=== PATIENT | female | born 1980 ===

== ENCOUNTER 2020-10-18 16:25 | Emergency (ER) | payer MEDICAID, SELFPAY ==
[2020-10-18 16:35] VITALS: BP 131/77; PULSE 106; RESP 16; TEMP 36.5; O2SAT 98; BMI 28.3
--- NOTE | 2020-10-18 18:46 | ED.GENADULT ---
HPI - General Adult General Chief complaint: General Medical Stated complaint: Throat discomfort Source: patient Mode of arrival: ambulatory Limitations: no limitations History of Present Illness HPI narrative: 40-year-old female of HIV on anti-retroviral therapy presents with sore throat. States that she does get recurrent sore throats with thrush and feels that this is same as prior experiences. Onset (ago): day(s) (2) Radiation: non-radiation Severity: mild Quality: burning Pain Consistency: constant Relieving factors: none Exacerbating factors: eating Associated symptoms: denies other symptoms Treatments prior to arrival: none Related Data Previous Rx's Medication Instructions Recorded fluconazole 100 mg tablet 100 mg PO DAILY 7 Days #7 tab 10/18/20 Allergies Allergy/AdvReac Type Severity Reaction Status Date / Time No Known Allergies Allergy Unverified 11/08/19 16:58 [No Known Allergies*] Review of Systems Review of Systems: Constitutional: No Fever, No Chills ENT/Mouth: No Ear Pain, No Hoarseness, positive sore throat Eyes: No Eye Pain, No Swelling, No Redness, No Foreign Body Cardiovascular: No Chest Pain, No SOB Respiratory: No Cough, No Dyspnea Gastrointestinal: No Nausea, No Vomiting, No Diarrhea, No abdominal Pain Genitourinary: No Dysuria, No Hematuria Musculoskeletal: No joint pain, No Myalgias, No Joint Swelling Skin: No Skin lacerations, No rash Neuro: No Weakness, No Numbness, No Paresthesias, No Loss of Consciousness, No Dizziness, No Headache Psych: No Anxiety/Panic, No Depression Heme/Lymph: no easy bruising, no Lymphadenopathy Endocrine: No Polyuria, No Polydipsia Yes all other systems are reviewed and are negative [facility] Past Medical History Attestation statement: The following information was validated with the patient. Source: old records reviewed Medical History HIV (human immunodeficiency virus infection) Social History Social History Advance Directives: No Advance Directives Information Provided: No Patient : No Physical Exam Vital Signs: Vital Signs: Last Vital Signs Temp 97.7 F 10/18/20 16:35 Pulse 106 H 10/18/20 16:35 Resp 16 08/28/21 16:35 BP 131/77 10/18/20 16:35 Pulse Ox 98 10/18/20 16:35 Body Mass Index 28.3 Appearance: Alert. Oriented X3. No acute distress. Eyes: Pupils equal, round and reactive to light. ENT: Pharynx with candidiasis without erythema. No cervical lymphadenopathy. Neck: Normal inspection. Neck supple. CVS: Normal heart rate and rhythm. Pulses normal. Respiratory: No respiratory distress. Breath sounds normal. Abdomen: Soft and nontender. Skin: Skin warm and dry. Normal skin color. Normal skin turgor. Extremities: No lower extremity edema. Gait while balance well coordinated. Neuro: No motor deficit. No sensory deficit. Cranial nerves 2-12 intact Course Course Course Narrative: 40-year-old female with HIV presents with oral thrush. Patient has been treated with fluconazole in the past and states that this medication works the best for her. She is on anti-retroviral therapy at this time. Will treat with fluconazole 200 mg and give 7 day treatment for home. Patient verbalized understanding of and agrees to plan of care discharge home Medical Decision Making Differential Diagnosis Differential Diagnosis: Pharyngitis, oral candidiasis, strep Medical Records Medical records reviewed: Yes I reviewed the patient's medical records. Lab Data Lab results reviewed: Yes I reviewed the patient's lab results. Labs: Lab Results 10/18/20 10/18/20 Range/Units 18:42 18:42 COVID-19 (MIGUEL) Negative (Negative) COVID-19 Clin Com See Note S. pyogenes GrpA JUDY Negative (Negative) Discharge Plan Discharge Clinical Impression: Candidiasis of mouth Patient Disposition: Home, Self-Care Instructions: Oral Candidiasis (ED) Additional Instructions: You evaluated for sore throat. Evaluation indicates oral candidiasis. Please take fluconazole 100 mg for the next 7 days. We gave her 1st dose in the emergency department. Follow-up with primary care physician in 1 week. Thank you for choosing this emergency department for evaluation. Please follow-up with primary care physician as needed. Return to the emergency department for any new, concerning, or worsening symptoms. Prescriptions: New fluconazole 100 mg tablet 100 mg PO DAILY 7 Days Qty: 7 RF: 0 Interventions: ED Discharge Assessment Last Done: 10/18/20 19:33 Discharge Date/Time: 10/18/20 19:52
[2020-10-18 18:58] LABS: Strep A Nucleic Acid Negative (Negative)
[2020-10-18 19:05] LABS: COVID-19 Test Negative (Negative); IDNOW Serial# 9DD0AD1C
[2020-10-18] MEDS: Fluconazole 100 MG TABLET 200 MG PO (19:28)
== END 2020-10-18 19:52 | disposition home or self-care (01) ==
PROVIDERS: Emergency Provider Emergency Medicine Emergency Medical Services; PCP Family Medicine
DX: B20 Human immunodeficiency virus [HIV] disease (principal); B37.0 Candidal stomatitis; J02.9 Acute pharyngitis, unspecified; Z20.822 Contact with and (suspected) exposure to COVID-19
CPT/HCPCS: 36415; 87635; 87651; 99283

== ENCOUNTER 2021-02-16 15:43 | Emergency (ER) | payer MEDICAID, SELFPAY | END 2021-02-16 20:24 | disposition left against medical advice (07) | PROVIDERS: Emergency Provider Emergency Medicine; PCP Family Medicine | DX: R79.89 Other specified abnormal findings of blood chemistry (principal) ==

== ENCOUNTER 2021-07-17 10:31 | Outpatient (REF) | payer MEDICAID, SELFPAY ==
--- NOTE | ~2021-07-17 | US_ITS ---
EXAMINATION: ULTRASOUND OF THE PELVIS CLINICAL INFORMATION: Dysmenorrhea. COMPARISON: None. TECHNIQUE: Transabdominal pelvic ultrasound. Endovaginal evaluation was declined by patient. FINDINGS: The uterus is normal in size and appearance, measuring 13.8 x 4.5 x 8 cm longitudinally, anteroposteriorly and transversely. The endometrial stripe thickness is normal, measuring 0.7 cm in thickness. No focal myometrial mass is seen. Nabothian cysts are noted at the cervix. The ovaries bilaterally are visualized and appear normal, with the right ovary measuring 3.4 x 2.4 x 3.9 cm and the left ovary measuring 3.6 x 2.3 x 3 cm. Mildly prominent follicles in both ovaries with no suspicious mass. No adnexal mass or free fluid collection seen. US/US pelvic limited IMPRESSION: No adnexal mass. Prominent bilateral ovarian follicles. Normal appearance of the uterus..
== END 2021-07-17 10:32 | disposition home or self-care (01) ==
LOC: HO.HMGCX 10:31
PROVIDERS: Visit Provider Family Medicine
DX: D50.9 Iron deficiency anemia, unspecified (principal); N94.6 Dysmenorrhea, unspecified
CPT/HCPCS: 76857

== ENCOUNTER 2021-09-09 07:43 | Outpatient (REF) | payer MEDICAID, SELFPAY ==
--- NOTE | ~2021-09-09 | MM_ITS ---
EXAMINATION: MM SCREENING DIGITAL BREAST TOMOSYNTHESIS, BILATERAL CLINICAL INFORMATION: Screening. Asymptomatic. The lifetime risk of breast cancer based on the Tyrer-Cuzick Model is 7.5%. COMPARISON: Mammography: None TECHNIQUE: Digital breast tomosynthesis is performed in both the craniocaudal and mediolateral oblique views along with computer-aided detection (CAD). Synthesized 2D images are generated from the tomosynthesis. FINDINGS: The breasts are heterogeneously dense, which may obscure small masses (ACR BI-RADS breast composition Category c). There are no significant masses, abnormal calcifications, or other abnormalities. MM/MM tomosynthesis screening BI IMPRESSION: No mammographic evidence of malignancy. ASSESSMENT: BI-RADS 1: Negative RECOMMENDATION: Routine annual mammography screening. This patient's information was entered into a reminder system with a target due date for their next mammogram.
== END 2021-09-09 07:44 | disposition home or self-care (01) ==
LOC: HO.MAMMO 07:43
PROVIDERS: Visit Provider Family Medicine
DX: Z12.31 Encounter for screening mammogram for malignant neoplasm of breast (principal)
CPT/HCPCS: 77063; 77067

== ENCOUNTER 2022-08-17 15:48 | Inpatient (IN) | payer MEDICAID, SELFPAY ==
--- NOTE | ~2022-08-17 | CT_ITS ---
EXAMINATION: CT ABDOMEN AND PELVIS WITH CONTRAST CLINICAL INFORMATION: Right lower quadrant pain COMPARISON: Ultrasound pelvis 07/17/2021 TECHNIQUE: Multidetector volumetric images were obtained from the superior aspect of the liver through the pubic symphysis following administration 85 mL of Omnipaque 350 intravenous contrast. Sagittal and coronal reformatted images were obtained on the technologist's workstation. Oral contrast: No This CT examination was performed using dose optimization techniques as appropriate, variously including the following: *Automated exposure control *Adjustment of mA and/or kV according to patient size (this includes techniques or standardized protocols for targeted exams where dose is matched to indication/reason for exam; i.e. extremities or head) *Use of iterative reconstruction technique DLP: 427 mGy-cm FINDINGS: LUNG BASES: The visualized lung bases are unremarkable. LIVER, GALLBLADDER, AND BILIARY TREE: The liver is normal in size, shape, and attenuation. No focal hepatic lesion or biliary ductal dilatation is present. The gallbladder is abnormal. Multiple stones are present in the gallbladder and the gallbladder wall is significantly thickened at 1.5 cm and contains a/high density material. Some pericholecystic inflammatory change is present. No pericholecystic abscess is seen, although inflammatory changes extend to the transverse colon. PANCREAS: Unremarkable. SPLEEN: Spleen is enlarged at 12.4 cm. ADRENAL GLANDS: Unremarkable. KIDNEYS AND URETERS: The kidneys are normal in size, shape, and attenuation. No hydronephrosis, hydroureter, or calculi seen. No perinephric stranding. BLADDER: Symmetric bladder wall thickening seen. GASTROINTESTINAL TRACT: Inflammatory change from the gallbladder extends towards dissection of distal transverse colon. No bowel obstruction. The small and large bowel are otherwise unremarkable. The appendix is not seen but there is no evidence of appendicitis. The right lower quadrant there is a rounded fat density area of calcification which may represent an old avulsed epiploic appendage. ABDOMINAL WALL: No significant hernia is appreciated. LYMPH NODES: Normal. VASCULAR: Unremarkable. PELVIC VISCERA: The uterus and adnexa are unremarkable. Moderate free fluid is present in the cul-de-sac. OSSEOUS STRUCTURES: Unremarkable. CT/CT abdomen pelvis w IV con IMPRESSION: 1. Findings are consistent with acute cholecystitis. 2. Incidental note made of mild splenomegaly and moderate free fluid in the cul-de-sac along with other findings described above. Fleischner guidelines were followed.
--- NOTE | ~2022-08-17 | XR_ITS ---
EXAMINATION: XR CHEST CLINICAL INFORMATION: Fever COMPARISON: None available. TECHNIQUE: Frontal view of the chest was obtained. Approximately 2:43 PM. FINDINGS: Bilateral slight blunting in the costophrenic angles observed, suggestive of small effusions or pleural reactions. There is small linear atelectatic change in the right base. Pulmonary vascularity does not appear congested. There are postsurgical changes in the right upper quadrant. XR/XR chest 1V IMPRESSION: Small atelectatic changes in the right base. Blunting in the costophrenic angles suggestive of small effusions or pleural reactions.
--- NOTE | 2022-08-17 15:53 | ED.GENADULT ---
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 Related Data Home Medications Medication Instructions Recorded Confirmed bictegravir 50 mg-emtricitabine 1 tab PO DAILY 02/23/21 10/13/21 200 mg-tenofovir alafenam 25 mg tablet (Biktarvy) Xulane 1 patch miscellaneous DIRECTED 10/13/21 10/13/21 famotidine 1 tab PO DAILY 10/13/21 10/13/21 loratadine 1 tab PO DAILY 10/13/21 10/13/21 sulfamethoxazole 400 1 tab PO DAILY 10/13/21 10/13/21 mg-trimethoprim 80 mg tablet Previous Rx's Medication Instructions Recorded cyanocobalamin (vitamin B-12) 1,000 mcg PO DAILY #90 tabs 02/23/21 1,000 mcg tablet (Vitamin B-12) ferrous sulfate 325 mg (65 mg 325 mg PO BID #60 tabs 10/13/21 iron) tablet Allergies Allergy/AdvReac Type Severity Reaction Status Date / Time No Known Allergies Allergy Verified 08/17/22 15:57 [No Known Allergies*] Review of Systems Review of Systems: Pertinent positives and negatives as stated in [facility] Past Medical History Source: nursing notes reviewed Medical History AIDS (acquired immune deficiency syndrome) Anemia Centers for Disease Control and Prevention category C3 HIV infection ABILIO III (cervical intraepithelial neoplasia grade III) with severe dysplasia Surgical History Hx of section Social History Social History Household Members: Significant Other and Family Housing: House Alcohol intake: never Patient Tobacco Use Status: Never used Tobacco Tobacco use type: Cigarette Smoked in Last 30 Days: No Use of substances other than those prescribed or required for medical reasons: No Advance Directives: No Advance Directives Information Provided: No Patient : No service: No Current occupational status: unemployed and disabled Physical Exam ED Vital Signs: Vital Signs - 24 hr 08/17/22 15:57 08/17/22 20:02 08/17/22 21:18 Temperature 97.2 F 97.5 F 97.4 F Pulse Rate 131 H 114 H 120 H Respiratory Rate 16 18 21 H Blood Pressure 120/75 120/75 126/76 Pulse Oximetry 100 98 100 Oxygen Delivery Method Room Air Room Air Room Air BMI result Body Mass Index 25.7 VITAL SIGNS: Reviewed. GENERAL: Well developed, well nourished, in no acute distress. HEAD: Normocephalic/atraumatic EYES: PERRLA, EOMI EARS: Ext canals without abnormality NOSE: Nares patent bilateral OROPHARYNX: no oral lesions noted, posterior pharynx clear NECK: Supple, no adenopathy LUNGS: Normal breath sounds. No adventitious sounds or accessory muscle use. SpO2<100> CARDIOVASCULAR: Regular rate and rhythm without noted murmurs ABDOMEN: Soft, right upper quadrant with [place]'s positive, non-distended with bowel sounds. MUSCULOSKELETAL: No tenderness, deformities, or effusions noted on gross inspection. EXTREMITIES: No cyanosis, clubbing or edema. SKIN: Inspection of the skin reveals no rashes NEUROLOGIC: Alert and oriented x 4. Strength and sensation to light touch were grossly intact x 4. Course Course Course Narrative: This is an RME: Additional HPI, ROS, PE not included below will be deferred to primary provider. 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 Denies any blood in vomit or coffee ground emesis. Denies diarrhea or constipation. Has been unable to eat for 3 days related to pain. Rates current pain at 6/10. Plan: Labs, UA Medications Administered Discontinued Medications Generic Name Dose Route Start Last Admin Trade Name Freq PRN Reason Stop Dose Admin Sodium Chloride 1,000 mls @ 999 mls/hr 08/17/22 22:45 08/17/22 22:46 Ns IV 08/17/22 23:45 999 mls/hr .Q1H1M LISSET Administration Iohexol 85 ml 08/17/22 23:18 08/17/22 23:18 Iohexol 350 Mg/Ml 100 Ml Infus..Btl IV 08/17/22 23:19 85 ml ONCE ONE Administration Ondansetron HCl 4 mg 08/17/22 22:35 08/17/22 22:46 Ondansetron Hcl 4 Mg/2 Ml Vial IVPUSH 08/17/22 22:36 4 mg ONCE ONE Administration Medical Decision Making Medical Decision Making [facility] Narrative: 2235: 42-year-old female with known HIV currently on Biktarvy presents with symptoms suggestive of cholecystitis on review of all investigations to include imaging studies patient is noted to have acute cholecystitis, I discussed this case with General surgery who accepts admission. Patient was informed of all results. 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 Please see the discussion above Lab Data Please see the discussion above 08/17/22 17:54 08/17/22 17:54 Labs: Lab Results 08/17/22 08/17/22 08/17/22 Range/Units 17:54 17:54 17:54 WBC 9.5 (4.8-10.8) X10*3/uL RBC 4.06 L (4.20-5.50) X10*6/uL Hgb 8.4 L (12.0-16.0) g/dl Hct 29.0 L (37.0-47.0) % MCV 71.4 L (80.0-98.0) fL MCH 20.7 L (27.0-33.0) pg MCHC 29.0 L (31.0-35.0) g/dl RDW 22.1 H (11.0-16.0) % Plt Count 397 (160-400) X10*3/uL MPV 9.2 L (9.4-12.3) fL Immature Gran % (Auto) 0.8 H (0.0-0.4) % Neut % (Auto) 78.1 H (45-73) % Lymph % (Auto) 14.5 L (20-40) % [place] % (Auto) 5.9 (2-11) % Eos % (Auto) 0.5 (0-4) % Baso % (Auto) 0.2 (0-2) % Lymph # (Auto) 1.4 (1.2-4.9) X10*3/uL [place] # (Auto) 0.6 (0.1-1.2) X10*3/uL Eos # (Auto) 0.1 (0.0-0.4) X10*3/uL Baso # (Auto) 0.0 (0.0-0.2) X10*3/uL Abs Immat Gran (auto) 0.08 H (0.00-0.03) X10*3/uL Absolute Neuts (auto) 7.4 (2.0-8.3) x10*3/uL Absolute Nucleated RBC 0.000 (0.0-0.012) X10*3/uL Nucleated RBC % (auto) 0.0 (0.0-0.2) /100WBC Sodium 138 (135-145) mmol/L Potassium 3.7 (3.3-5.1) mmol/L Chloride 105 (96-108) mmol/L Carbon Dioxide 23 (22-29) mmol/L Anion Gap 14 (12-20) BUN 9 (9-16) mg/dL Creatinine 0.64 (0.5-1.4) mg/dL Estim Creat Clear Calc 90.6 Estimated GFR > 60 Random Glucose 86 (60-115) mg/dL Calcium 10.1 D (8.4-10.2) mg/dL Total Bilirubin 0.6 (0.0-1.0) mg/dL AST 11 (5-31) U/L ALT 6 (0-31) U/L Alkaline Phosphatase 67 (39-117) U/L Total Protein 8.5 H (6.5-8.0) g/dL Albumin 4.0 (3.5-5.0) g/dL Lipase 8 (8-78) U/L Beta HCG, Quant < 2 mIU/mL Urine Color Urine Appearance Urine pH (5.0-9.0) Ur Specific [place] (1.005-1.025) Urine Protein (Neg-Trace) mg/dL Urine Glucose (UA) (Negative) mg/dL Urine Ketones (Negative) mg/dL Urine Blood (Negative) Urine Nitrite (Negative) Ur Leukocyte Esterase (Negative) Urine RBC (0-2) /HPF Urine WBC (0-5) /HPF Ur Squamous Epith Cells (0-2) /HPF Urine Bacteria (None Seen) Hyaline Casts (0-2) /LPF 08/17/22 Range/Units 17:54 WBC (4.8-10.8) X10*3/uL RBC (4.20-5.50) X10*6/uL Hgb (12.0-16.0) g/dl Hct (37.0-47.0) % MCV (80.0-98.0) fL MCH (27.0-33.0) pg MCHC (31.0-35.0) g/dl RDW (11.0-16.0) % Plt Count (160-400) X10*3/uL MPV (9.4-12.3) fL Immature Gran % (Auto) (0.0-0.4) % Neut % (Auto) (45-73) % Lymph % (Auto) (20-40) % [place] % (Auto) (2-11) % Eos % (Auto) (0-4) % Baso % (Auto) (0-2) % Lymph # (Auto) (1.2-4.9) X10*3/uL [place] # (Auto) (0.1-1.2) X10*3/uL Eos # (Auto) (0.0-0.4) X10*3/uL Baso # (Auto) (0.0-0.2) X10*3/uL Abs Immat Gran (auto) (0.00-0.03) X10*3/uL Absolute Neuts (auto) (2.0-8.3) x10*3/uL Absolute Nucleated RBC (0.0-0.012) X10*3/uL Nucleated RBC % (auto) (0.0-0.2) /100WBC Sodium (135-145) mmol/L Potassium (3.3-5.1) mmol/L Chloride (96-108) mmol/L Carbon Dioxide (22-29) mmol/L Anion Gap (12-20) BUN (9-16) mg/dL Creatinine (0.5-1.4) mg/dL Estim Creat Clear Calc Estimated GFR Random Glucose (60-115) mg/dL Calcium (8.4-10.2) mg/dL Total Bilirubin (0.0-1.0) mg/dL AST (5-31) U/L ALT (0-31) U/L Alkaline Phosphatase (39-117) U/L Total Protein (6.5-8.0) g/dL Albumin (3.5-5.0) g/dL Lipase (8-78) U/L Beta HCG, Quant mIU/mL Urine Color Dark Yellow Urine Appearance Clear Urine pH 6.5 (5.0-9.0) Ur Specific [place] 1.025 (1.005-1.025) Urine Protein 100 (2+) H (Neg-Trace) mg/dL Urine Glucose (UA) Negative (Negative) mg/dL Urine Ketones >=160 (Negative) mg/dL Urine Blood Moderate (2+) H (Negative) Urine Nitrite Negative (Negative) Ur Leukocyte Esterase Negative (Negative) Urine RBC >20 H (0-2) /HPF Urine WBC 0-5 (0-5) /HPF Ur Squamous Epith Cells 3-5 (0-2) /HPF Urine Bacteria None Seen (None Seen) Hyaline Casts 0-2 (0-2) /LPF Radiology Impression Radiologist Impression: My interpretation is in agreement with radiology's impression. External Record Review External record reviewed: Prior outpatient labs Discharge Plan Discharge Clinical Impression: Acute cholecystitis, Anemia Patient Disposition: Admitted As Inpatient Prescriptions: No Action Biktarvy 50-200-25 mg tablet 1 tab PO DAILY cyanocobalamin (vitamin B-12) [Vitamin B-12] 1,000 mcg Tablet 1,000 mcg PO DAILY Qty: 90 3RF Xulane 150 mcg patch 1 patch miscellaneous DIRECTED sulfamethoxazole-trimethoprim 400-80 mg tablet 1 tab PO DAILY famotidine 20 mg tablet 1 tab PO DAILY loratadine 10 mg tablet 1 tab PO DAILY ferrous sulfate 325 mg (65 mg iron) Tablet 325 mg PO BID Qty: 60 5RF
[2022-08-17 15:57] VITALS: BP 120/75; PULSE 131; RESP 16; TEMP 36.2; O2SAT 100; BMI 25.7
[2022-08-17 18:00] LABS: MANUAL DIFF FLAG NO
[2022-08-17 18:02] LABS: Appearance Urine Clear; Color Urine Dark Yellow; Glucose Urine UA Negative (Negative); Leukocyte Esterase Urine Negative (Negative); Nitrite Urine Negative (Negative); PH 6.5 (5.0-9.0); Specific Gravity - Urine 1.025 (1.005-1.025); UMIC TRIGGER UACC YES; Urine Blood Moderate (2+) (Negative); Urine Ketones >=160 mg/dL (Negative); Urine Protein 100 (2+) mg/dL (Neg-Trace)
[2022-08-17 18:04] LABS: Bacteria Urine None Seen (None Seen); Hyaline Casts Urine 0-2 /LPF (0-2); RBC Urine >20 /HPF (0-2); WBC Urine 0-5 /HPF (0-5)
--- NOTE | 2022-08-17 18:04 | MHC.EDTECH ---
PATIENT URINE SAMPLE COLLECTED ,BLOOD DRAWN AND SENT TO LAB .
[2022-08-17 18:14] LABS: Basophils Percent Auto 0.2 % (0-2); Eosinophils Absolute Auto 0.1 X10*3/uL (0.0-0.4); Eosinophils Percent Auto 0.5 % (0-4); Hemoglobin 8.4 g/dl (12.0-16.0); Imm Gran Abs Auto 0.08 X10*3/uL (0.00-0.03); Imm Gran Pct Auto 0.8 % (0.0-0.4); Lymphocytes Absolute Auto 1.4 X10*3/uL (1.2-4.9); Lymphocytes Percent Auto 14.5 % (20-40); Mean Corpuscular Hemoglobin 20.7 pg (27.0-33.0); Mean Corpuscular Volume 71.4 fL (80.0-98.0); Mean Platelet Volume 9.2 fL (9.4-12.3); Monocytes Absolute Auto 0.6 X10*3/uL (0.1-1.2); Monocytes Percent Auto 5.9 % (2-11); Neutrophils Absolute Auto 7.4 x10*3/uL (2.0-8.3); Neutrophils Percent Auto 78.1 % (45-73); Platelet Count 397 X10*3/uL (160-400); Red Blood Count 4.06 X10*6/uL (4.20-5.50); Red Cell Distribution Width 22.1 % (11.0-16.0); White Blood Count 9.5 X10*3/uL (4.8-10.8)
[2022-08-17 18:22] LABS: Alanine Aminotransferase 6 U/L (0-31); Alkaline Phosphatase 67 U/L (39-117); Anion Gap 14 (12-20); Aspartate Amino Transferase 11 U/L (5-31); Bilirubin Total 0.6 mg/dL (0.0-1.0); Blood Urea Nitrogen 9 mg/dL (9-16); Calcium 10.1 mg/dL (8.4-10.2); Carbon Dioxide 23 mmol/L (22-29); Chloride 105 mmol/L (96-108); Creatinine Clr Calc Pharmacy 90.6; Estimated Glomerular Filt Rate > 60; Glucose Random 86 mg/dL (60-115); Potassium 3.7 mmol/L (3.3-5.1); Sodium 138 mmol/L (135-145); Total Protein 8.5 g/dL (6.5-8.0)
[2022-08-17 18:24] LABS: HCG Quantitative < 2 mIU/mL
[2022-08-17 18:38] LABS: Lipase 8 U/L (8-78)
[2022-08-17 20:02] VITALS: BP 120/75; PULSE 114; RESP 18; TEMP 36.4; O2SAT 98
[2022-08-17 21:18] VITALS: BP 126/76; PULSE 120; RESP 21; TEMP 36.3; O2SAT 100
[2022-08-17] MEDS: 0.9 % Sodium Chloride 1,000 ML 999 ML IV (22:46)
[2022-08-17] MEDS: ondansetron HCL 4 MG/2 ML VIAL IVPUSH (22:46)
[2022-08-17] MEDS: iohexoL 350 MG/ML 100 ML INFUS..BTL 85 ML IV (23:18)
[2022-08-17 23:51] VITALS: BP 117/72; PULSE 119; RESP 16; TEMP 37.6; O2SAT 98
[2022-08-18] VITALS (16 sets, daily range): BP systolic 106–130; BP diastolic 65–77; PULSE 84–114; RESP 14–20; TEMP 36–36.9; O2SAT 94–998; BMI 26.3
--- NOTE | 2022-08-18 00:09 | PM.HPGS ---
History of Present Illness History of Present Illness Date of Service: 08/18/22 Chief complaint: Cholecystitis Narrative: Holley Finney is a 42 year old female with anemia, HIV, presenting with abd pain & abnormal gallbladder on CT. Is seated with the help of interpretive services, Jj, and relates that for at least 3 months she has been experiencing epigastric and right upper quadrant pain. She saw her PCP at [facility] who told her she had gastritis. She was placed on an unknown medication. Patient reports this episode started at 02:00 o'clock on Tuesday morning waking her from sleep. She notes epigastric and right upper quadrant pain radiating to her back. Patient reports a history of anemia going back to childhood but is unaware of if she has ever been worked up with endoscopy. She is unclear as to whether not she is having heavy. It is that would contribute to anemia. She does acknowledge that she has had multiple blood transfusions. We reviewed the inherent risks of blood transfusion and her hemoglobin of 7.1. She is willing to have blood transfusion if recommended. Patient does not work and denies any nicotine or street drug use. Review of Systems Review of Systems: Yes all other systems are reviewed and are negative Constitutional: Constitutional: Reports as per [facility] Past Medical History Medical History (Updated 08/18/22 @ 00:11 by Carter Steel MD) AIDS (acquired immune deficiency syndrome) Anemia Centers for Disease Control and Prevention category C3 HIV infection ABILIO III (cervical intraepithelial neoplasia grade III) with severe dysplasia Surgical History Surgical History Hx of section Social History Social History Household Members: Family Housing: Apartment Do you presently have visiting nurse or other home services: No Alcohol intake: never Patient Tobacco Use Status: Never used Tobacco Tobacco use type: Cigarette Smoked in Last 30 Days: No e-Cigarette/Vaping Use: Never Used Second Hand Smoke Exposure: No Use of substances other than those prescribed or required for medical reasons: No Currently Displaying Signs/Symptoms of Drug Intoxication Withdrawal: No Any prior treatment program specific to substance use: No Have you been hit, kicked, punched, or otherwise hurt by someone within the past year? If so, by whom?: No Do you feel safe in your current relationship?: Yes Is there a partner from a previous relationship who is making you feel unsafe now?: No Are you made to feel afraid or neglected: No Advance Directives: No Advance Directives Information Provided: No Do you have thoughts of harming others: None Do you have a plan to hurt others: No Plan Recently lost weight without trying: No Eating poorly because of decreased appetite: No Nutrition Risks: No Nutritional Risk Patient : No : No Poor oral hygiene: No service: No Current occupational status: unemployed and disabled Meds Allergies Allergy/AdvReac Type Severity Reaction Status Date / Time No Known Allergies Allergy Verified 08/17/22 15:57 [No Known Allergies*] Active Medications: Current Medications Hydromorphone HCl (Hydromorphone Hcl 0.5 Mg/0.5 Ml Syringe) 0.25 mg IVPUSH Q2H PRN; Protocol PRN Reason: Pain, Moderate(Pain Scale 4-6) Piperacillin Sod/Tazobactam (Sod 3.375 gm/ Sodium Chloride) 50 mls @ 100 mls/hr IV ONCE ONE Stop: 08/18/22 00:14 Lactated Ringer's (Lr) 1,000 mls @ 125 mls/hr IVCONT .Q8H [facility] Pharmacy Consult (Consult Rx Perform Med Rec) 1 each MISCELLANE ONCE PRN PRN Reason: Consult order Home Medications Medication Instructions Recorded Confirmed Last Taken Type bictegravir 50 mg-emtricitabine 1 tab PO DAILY 02/23/21 10/13/21 Unknown History 200 mg-tenofovir alafenam 25 mg tablet (Biktarvy) famotidine 1 tab PO DAILY 10/13/21 10/13/21 Unknown History loratadine 1 tab PO DAILY 10/13/21 10/13/21 Unknown History sulfamethoxazole 400 1 tab PO DAILY 10/13/21 10/13/21 Unknown History mg-trimethoprim 80 mg tablet norelgestromin 150 mcg-e.estradiol patch topical 08/18/22 Unknown History 35 mcg/24 hr weekly transderm patch (Xulane) Physical Exam Vital Signs: Vital Signs: Last Vital Signs Temp 99.7 F 08/17/22 23:51 Pulse 119 H 08/17/22 23:51 Resp 16 08/17/22 23:51 BP 117/72 08/17/22 23:51 Pulse Ox 98 08/17/22 23:51 O2 Del Method Room Air 08/17/22 23:51 BMI result Body Mass Index 25.7 The patient is non-toxic & in good spirits NC/AT, PERRLA, EOMI Mood, affect & judgment all appear appropriate Sclera anicteric conjunctiva pink and moist Oropharynx is clear with no aphthous ulcers, Mallampati class 2, mucous membranes moist Neck is supple with no masses, adenopathy or bruits Heart is regular, normal S1-S2 no rubs or murmurs Lungs are clear and equal anteriorly with no audible wheezing, rubs or dullness to percussion Abdomen is overweight with no demonstrable hernias. She has epigastric and right upper quadrant pain to palpation with voluntary guarding on deep palpation. No HSM, rebound, rigidity, guarding, masses or bruits are present. Rectal exam is deferred Skin has good turgor and is free of rashes Extremities free of cyanosis clubbing edema Results Results Labs: Short CBC 08/17/22 Range/Units 17:54 WBC 9.5 (4.8-10.8) X10*3/uL Hgb 8.4 L (12.0-16.0) g/dl Hct 29.0 L (37.0-47.0) % Plt Count 397 (160-400) X10*3/uL BMP 08/17/22 17:54 Sodium 138 Potassium 3.7 Chloride 105 Carbon Dioxide 23 BUN 9 Creatinine 0.64 Calcium 10.1 D Liver Function 08/17/22 Range/Units 17:54 Total Bilirubin 0.6 (0.0-1.0) mg/dL AST 11 (5-31) U/L ALT 6 (0-31) U/L Alkaline Phosphatase 67 (39-117) U/L Albumin 4.0 (3.5-5.0) g/dL Urine 08/17/22 Range/Units 17:54 Urine Color Dark Yellow Urine Appearance Clear Urine pH 6.5 (5.0-9.0) Ur Specific [place] 1.025 (1.005-1.025) Urine Protein 100 (2+) H (Neg-Trace) mg/dL Urine Glucose (UA) Negative (Negative) mg/dL Abdomen CT scan report/results: report reviewed and image reviewed CT scan - pelvis: report reviewed and image reviewed Additional studies: This morning labs show hemoglobin has drifted to 7.1; the patient's white blood cell count remains normal at 6.4 with a normal differential; platelet count 325 K Electrolytes and liver function tests are within normal parameters Assessment and Plan (1) Acute cholecystitis: Status: Acute (2) Anemia: Status: Chronic (3) AIDS (acquired immune deficiency syndrome): Status: Acute (4) HIV (human immunodeficiency virus infection): Status: Acute Plan Admit, NPO, IVF, Abx, analgesics & antiemetics Consult hospitalist re: HIV & assess re: OR risk/CD4 count 08/18/22 0750 Via interpretive services, explained to the patient that she may have a surgical condition known as chronic calculous cholecystitis, but with her HIV infection, other etiologies including tumor/malignancy need to be considered. Unfortunately, these may not be diagnosed until post surgery. I reviewed the inherent risks of blood transfusion; transfusion reaction, Infectious Diseases, need to stop the transfusion if she has a reaction in the unlikely but possible issue of kidney or other organ damage. She seemed to understand in stated that in prior transfusions she never had a problem and she gave informed consent for blood transfusion is needed. Will transfuse 1 unit of blood given her hemoglobin of 7.1 unlikely need for operative intervention which may have significant blood loss. I also explained laparoscopic cholecystectomy with the inherent risks of bleeding, infection, need for open surgery, the unlikely but possible issue of bile leak, retained common duct stones or other complications that could require an ERCP; I also explained the possibility that we may encounter unexpected pathology. Temporary drain placement was also disclosed. Patient's questions seemed to be satisfactorily answered and she requested that I proceed as medically indicated. See orders regarding blood transfusion today. Await hospital input regarding her HIV/CD4 counts. Patient notes that they have not been done for at least 6 months. She also acknowledges that no official workup regarding her anemia has been done, to the best of her knowledge. Time Spent With Patient Time: Total time managing care of this patient today ____ minutes. Quality Stroke Does the patient have a stroke diagnosis?: No VTE Prior VTE?: No VTE Risk Level:: Surgical - moderate VTE Device Contraindication: N/A - Device Ordered VTE Drug Contraindication: N/A - Med Ordered Procedures Date of Service Date of Service: 08/18/22
[2022-08-18 00:25] LABS: Lactic Acid 0.7 mmol/L (0.5-2.0)
[2022-08-18 00:53] LABS: Prothrombin Time 11.7 SEC (10.0-13.1)
[2022-08-18] MEDS: fentaNYL citrate/PF 100 MCG/2 ML VIAL 25 MCG IVPUSH (00:54)
[2022-08-18] MEDS: Piperacillin Sodium/Tazobactam 3.375 GM in 0.9 % Sodium Chloride 50 ML IV ×3 (00:54→18:10)
[2022-08-18 00:55] LABS: Partial Thromboplastin Time 28.4 SEC (26.0-36.4)
[2022-08-18] MEDS: Lactated Ringers 1,000 ML 125 ML IVCONT ×2 (01:24→08:42)
[2022-08-18 06:04] LABS: MANUAL DIFF FLAG NO
[2022-08-18 06:23] LABS: Basophils Percent Auto 0.2 % (0-2); Eosinophils Absolute Auto 0.1 X10*3/uL (0.0-0.4); Eosinophils Percent Auto 1.1 % (0-4); Hematocrit 24.2 % (37.0-47.0); Hemoglobin 7.1 g/dl (12.0-16.0); Imm Gran Abs Auto 0.02 X10*3/uL (0.00-0.03); Imm Gran Pct Auto 0.3 % (0.0-0.4); Lymphocytes Absolute Auto 1.1 X10*3/uL (1.2-4.9); Lymphocytes Percent Auto 17.2 % (20-40); Mean Corpuscular HGB Conc 29.3 g/dl (31.0-35.0); Mean Corpuscular Volume 71.6 fL (80.0-98.0); Mean Platelet Volume 9.1 fL (9.4-12.3); Monocytes Absolute Auto 0.4 X10*3/uL (0.1-1.2); Monocytes Percent Auto 6.3 % (2-11); Neutrophils Absolute Auto 4.8 x10*3/uL (2.0-8.3); Neutrophils Percent Auto 74.9 % (45-73); Platelet Count 325 X10*3/uL (160-400); Red Blood Count 3.38 X10*6/uL (4.20-5.50); Red Cell Distribution Width 21.8 % (11.0-16.0); White Blood Count 6.4 X10*3/uL (4.8-10.8)
[2022-08-18 06:37] LABS: Alanine Aminotransferase 6 U/L (0-31); Albumin Level 3.3 g/dL (3.5-5.0); Alkaline Phosphatase 57 U/L (39-117); Anion Gap 13 (12-20); Aspartate Amino Transferase 11 U/L (5-31); Bilirubin Total 0.3 mg/dL (0.0-1.0); Blood Urea Nitrogen 7 mg/dL (9-16); Carbon Dioxide 21 mmol/L (22-29); Chloride 109 mmol/L (96-108); Creatinine Clr Calc Pharmacy 99.4; Estimated Glomerular Filt Rate > 60; Glucose Random 75 mg/dL (60-115); Potassium 3.4 mmol/L (3.3-5.1); Sodium 140 mmol/L (135-145); Total Protein 7.2 g/dL (6.5-8.0)
--- NOTE | 2022-08-18 09:13 | PHA.MEDREC ---
Pharmacy Consult ? Medication Reconciliation Pharmacy has completed the medication reconciliation Spoke to patient and knew meds.
--- NOTE | 2022-08-18 11:54 | W.PM.OPN ---
Operative Note Operative Note Date of Service: 08/18/22 Narrative: Preop diagnosis: [Acute calculous cholecystitis on CT] Postop diagnosis: [Acute gangrenous cholecystitis] Procedure: [Lap choly] Surgeon: Carter Steel MD Assist: [Homero Durham PA-C] Anesthesia: [GET, Local: Marcaine, 0.5% with epi] Estimated blood loss: [100cc] Drain: SHERIF in Morison's pounch Specimen: [1) GB fluid for Gram stain & culture; 2) Gallbladder with contents] Intraoperative findings: [Acute gangrenous calculous cholecystitis grossly, gallbladder wall was very thick. Adhesions from the omentum were present. Cystic duct was 6-7 mm OD; 3-4 mm ID; cystic artery 5-6mm OD, 3mm ID] Indications: [The patient is a 42-year-old woman with a history of menorrhagia related anemia, HIV positive who is been having several months of epigastric and right upper quadrant pain. She states her PCP placed her on a prescription antacid. Patient CD4 counts have been low since being diagnosed with HIV and she follows up at [facility]. Patient presented with abdominal pain and a CT demonstrated a 15 mm gallbladder wall with pericholecystic inflammation and cholelithiasis. However, the patient's white blood cell count and LFTs were all normal. In addition, she was anemic following hydration with a hemoglobin of 7.1 so she was transfused. Options regarding continued observation or 2nd opinion were reviewed with interpretive services and the patient and she seemed understand her options. She agreed to the blood transfusion with the inherent risks of transfusion reaction and infectious disease; I recommended a cholecystectomy and reviewed the inherent risks of bleeding, infection, need to leave a temporary drain, possible need for open surgery, the unlikely but possible issues of retained common duct stones or bile leak that could require an ERCP and the possibility that she has an HIV-related pathology involving her gallbladder that may not require operative intervention. However, malignancy and opportunistic infections or typically identified on post-op pathology which was explained to the patient. She seemed understand my recommendations and her options; she declined transfer or a 2nd opinion and wanted to proceed with surgery as recommended.] Procedure: [The patient was identified in preoperative holding and again in the operating room and placed supine on the table. An appropriate time-out was performed and preemptive local used at all trocar insertion sites. I began at the patient's supraumbilical midline and placed a Veress needle through a transverse supraumbilical incision. An appropriate drop test was performed. The needle was connected to high flow and opening pressures were 6 mmHg. A pneumoperitoneum of 15 mmHg was then obtained using carbon dioxide. The Veress needle was then removed and I accessed the patient's abdomen through the supraumbilical midline incision using a 5 mm Optiview trocar and 30 degree/5 mm laparoscopic without incident. Next a a 5 mm epigastric and two 5 mm right subcostal ports were placed with preemptive analgesia under direct laparoscopic vision without incident and the supraumbilical trocar upsized to a 12 mm trocar under direct laparoscopic vision. The epigastric trocar was upsized to 12 mm to accommodate the larger clip firmware software verification engineer. The gallbladder was covered with omentum. It was taken down with blunt dissection and the gallbladder wall tense so a cyst aspirated her used. The fluid was sent for Gram stain and culture. Even after decompression, the gallbladder was thickened and obviously gangrenous. The gallbladder was clearly identified. It was retracted cranially and anteriorly and dissection began in the lateral cystic triangle. The cystic duct was identified at its junction on the gallbladder and dissection carried medially, then circumferentially using the [place] dissector and hook. The entire gallbladder was very thick and the structures surprisingly large. The cystic artery was then carefully identified and circumferentially dissected. Once dissection of both structures was complete and the critical view of safety demonstrated, the duct and artery were double clipped proximally and once distally and sharply divided. Electrocautery was used to remove the gallbladder from its fossa on the liver. Dissection was slow due to edema at the interface of the gallbladder and liver. Liver bed was inspected for hemostasis and the clips were noted to be on the respective structures. The gallbladder was placed in an Endo-Catch bag and delivered through the umbilicus under direct laparoscopic vision. The umbilical incision had to be extended due to the size of the gallbladder. A SHERIF drain was inserted in Morison's pouch under direct laparoscopic vision and brought out through the inferior/lateral most right-sided abdominal 5 mm port. The drain was secured to the skin with a 2-0 silk suture. The abdomen was again inspected with the laparoscoped and a abdomen deflated to assess for hemostasis. The patient was returned to neutral position, the abdomen deflated and the fascia of the supraumbilical incision closed with interrupted Vicryl sutures. Skin was closed with 4-0 Monocryl subcuticular sutures. Mastisol and Steri-Strips were applied followed by Band-Aids. The patient tolerated the procedure well and was extubated recovered in stable condition. All sponge instrument counts were correct x 2. Preoperatively, I had offered to contact patient's family members or friends, but she declined stating that she would prefer to speak with them personally.]
--- NOTE | 2022-08-18 12:43 | P.CONHOSP_ITS ---
History of Present Illness Data of Consult Service Date: 08/18/22 Requesting physician: Carter Steel Primary Care Provider: Vera Leong DO HPI Reason for consult: HIV 42yo F with HIV/AIDS diagnosed in 1999 and started on HAART soon after. Never made a meaningful recovery in her CD4 count per [facility] HIV clinic. On Biktarvy for the past few years, followed by Dr Wang at [facility] but hasn't seen her in years. Last CD4 April 2021 was 88, with viral load of 70. Prior to that, in January 2021, viral load was 121. In February and April 2019, viral load was <20. She endorses full adherence with Biktarvy as well as Bactrim for PJP prophylaxis. Denies history of opportunistic infections like cryptococcocosis, PJP pneumonia, etc. Medical history also notable for iron deficiency anemia due to menorrhagia, for which she takes oral iron as well as a contraceptive patch. She was admitted to the general surgical service with 3 days of epigastric and RUQ pain, found to have acute calculous cholecystitis. Her hemoglobin is 7.1 and she is being transfused a unit of pRBCs. She has RUQ discomfort provoked by fatty foods. No fever, chills, weight loss, night sweats, thrush, dysphagia, cough, dyspnea, diarrhea, or rash. Review of Systems Review of Systems: Yes all other systems are reviewed and are negative [facility] Medical History AIDS (acquired immune deficiency syndrome) Anemia Centers for Disease Control and Prevention category C3 HIV infection ABILIO III (cervical intraepithelial neoplasia grade III) with severe dysplasia Surgical History Hx of section Social History Household Members: Family Housing: Apartment Do you presently have visiting nurse or other home services: No Alcohol intake: never Patient Tobacco Use Status: Never used Tobacco Tobacco use type: Cigarette Smoked in Last 30 Days: No e-Cigarette/Vaping Use: Never Used Second Hand Smoke Exposure: No Use of substances other than those prescribed or required for medical reasons: No Currently Displaying Signs/Symptoms of Drug Intoxication Withdrawal: No Any prior treatment program specific to substance use: No Have you been hit, kicked, punched, or otherwise hurt by someone within the past year? If so, by whom?: No Do you feel safe in your current relationship?: Yes Is there a partner from a previous relationship who is making you feel unsafe now?: No Are you made to feel afraid or neglected: No Are you DNR?: No Advance Directives: No Advance Directives Information Provided: No Do you have thoughts of harming others: None Do you have a plan to hurt others: No Plan Recently lost weight without trying: No Eating poorly because of decreased appetite: No Nutrition Risks: No Nutritional Risk Patient : No : No Poor oral hygiene: No service: No Current occupational status: unemployed and disabled Meds Allergies Allergy/AdvReac Type Severity Reaction Status Date / Time No Known Allergies Allergy Verified 08/17/22 15:57 [No Known Allergies*] Active Medications: Current Medications Acetaminophen (Acetaminophen 325 Mg Tablet) 975 mg PO Q6H PRN PRN Reason: Pain, Mild (Pain Scale 1-3) Bictegravir/Emtricitabine/Tenofovir (Bictegrav/Emtricit/Tenofov Ala Tablet) 1 tab PO DAILY [facility] Last Admin: 08/18/22 11:28 Dose: Not Given Cyanocobalamin (Cyanocobalamin (Vitamin B-12) 1,000 Mcg Tablet) 1,000 mcg PO DAILY [facility] Last Admin: 08/18/22 11:28 Dose: Not Given Famotidine (Famotidine 20 Mg Tablet) 1 mg PO DAILY [facility] Ferrous Sulfate (Ferrous Sulfate 324 Mg Tablet.Dr) 324 mg PO BID [facility] Hydromorphone HCl (Hydromorphone Hcl 0.5 Mg/0.5 Ml Syringe) 0.25 mg IVPUSH Q2H PRN; Protocol PRN Reason: Pain, Moderate(Pain Scale 4-6) Lactated Ringer's (Lr) 1,000 mls @ 125 mls/hr IVCONT .Q8H [facility] Last Admin: 08/18/22 08:42 Dose: 125 mls/hr Piperacillin Sod/Tazobactam (Sod 3.375 gm/ Sodium Chloride) 50 mls @ 100 mls/hr IV Q6H [facility] Last Infusion: 08/18/22 06:47 Dose: Infused Ondansetron HCl (Ondansetron Hcl 4 Mg/2 Ml Vial) 4 mg IVPUSH Q6H PRN PRN Reason: Nausea and Vomiting Trimethoprim/Sulfamethoxazole (Sulfamethox/Trimeth 400/80 Tablet) 1 tab PO DAILY [facility] Last Admin: 08/18/22 11:28 Dose: Not Given Home Medications Medication Instructions Recorded Confirmed Last Taken Type bictegravir 50 mg-emtricitabine 1 tab PO DAILY 02/23/21 08/18/22 08/11/22 History 200 mg-tenofovir alafenam 25 mg tablet (Biktarvy) famotidine 1 tab PO DAILY 10/13/21 08/18/22 08/11/22 History sulfamethoxazole 400 1 tab PO DAILY 10/13/21 08/18/22 08/11/22 History mg-trimethoprim 80 mg tablet norelgestromin 150 mcg-e.estradiol 1 patch topical 08/18/22 08/11/22 History 35 mcg/24 hr weekly transderm patch (Xulane) Physical Exam Vital Signs and Narrative: Vital Signs: Last Vital Signs Temp 98.3 F 08/18/22 12:38 Pulse 101 H 08/18/22 12:38 Resp 16 08/18/22 12:38 BP 125/77 08/18/22 12:38 Pulse Ox 96 08/18/22 12:38 O2 Del Method Room Air 08/18/22 12:38 BMI result Body Mass Index 26.3 Gen: in no acute distress HEENT: sclera anicteric, moist mucus membranes, no thrush Neck: supple, no adenopathy Lungs: clear to auscultation bilaterally Heart: regular rate and rhythm, no murmurs Abd: soft, RUQ tenderness, non-distended Ext: no edema Skin: warm/well-perfused Neuro: alert and oriented x3, no focal findings Psych: appropriate affect Results Labs 08/18/22 05:41 08/18/22 05:41 Labs: Laboratory Results - last 24 hr 08/17/22 08/17/22 08/17/22 17:54 17:54 17:54 MCV 71.4 L MCH 20.7 L MCHC 29.0 L RDW 22.1 H Plt Count 397 MPV 9.2 L Immature Gran % (Auto) 0.8 H Neut % (Auto) 78.1 H Lymph % (Auto) 14.5 L [place] % (Auto) 5.9 Eos % (Auto) 0.5 Baso % (Auto) 0.2 Lymph # (Auto) 1.4 [place] # (Auto) 0.6 Eos # (Auto) 0.1 Baso # (Auto) 0.0 Abs Immat Gran (auto) 0.08 H Absolute Neuts (auto) 7.4 Absolute Nucleated RBC 0.000 Nucleated RBC % (auto) 0.0 PT INR APTT Anion Gap 14 Estim Creat Clear Calc 90.6 Estimated GFR > 60 Random Glucose 86 Lactic Acid Calcium 10.1 D Total Bilirubin 0.6 AST 11 ALT 6 Alkaline Phosphatase 67 Total Protein 8.5 H Albumin 4.0 Lipase 8 Beta HCG, Quant < 2 Urine Color Urine Appearance Urine pH Ur Specific [place] Urine Protein Urine Glucose (UA) Urine Ketones Urine Blood Urine Nitrite Ur Leukocyte Esterase Urine RBC Urine WBC Ur Squamous Epith Cells Urine Bacteria Hyaline Casts Blood Type Antibody Screen Crossmatch 08/17/22 08/18/22 08/18/22 17:54 00:09 00:17 MCV MCH MCHC RDW Plt Count MPV Immature Gran % (Auto) Neut % (Auto) Lymph % (Auto) [place] % (Auto) Eos % (Auto) Baso % (Auto) Lymph # (Auto) [place] # (Auto) Eos # (Auto) Baso # (Auto) Abs Immat Gran (auto) Absolute Neuts (auto) Absolute Nucleated RBC Nucleated RBC % (auto) PT 11.7 INR 1.0 APTT 28.4 Anion Gap Estim Creat Clear Calc Estimated GFR Random Glucose Lactic Acid 0.7 Calcium Total Bilirubin AST ALT Alkaline Phosphatase Total Protein Albumin Lipase Beta HCG, Quant Urine Color Dark Yellow Urine Appearance Clear Urine pH 6.5 Ur Specific [place] 1.025 Urine Protein 100 (2+) H Urine Glucose (UA) Negative Urine Ketones >=160 Urine Blood Moderate (2+) H Urine Nitrite Negative Ur Leukocyte Esterase Negative Urine RBC >20 H Urine WBC 0-5 Ur Squamous Epith Cells 3-5 Urine Bacteria None Seen Hyaline Casts 0-2 Blood Type Antibody Screen Crossmatch 08/18/22 08/18/22 08/18/22 05:41 05:41 08:23 MCV 71.6 L MCH 21.0 L MCHC 29.3 L RDW 21.8 H Plt Count 325 MPV 9.1 L Immature Gran % (Auto) 0.3 Neut % (Auto) 74.9 H Lymph % (Auto) 17.2 L [place] % (Auto) 6.3 Eos % (Auto) 1.1 Baso % (Auto) 0.2 Lymph # (Auto) 1.1 L [place] # (Auto) 0.4 Eos # (Auto) 0.1 Baso # (Auto) 0.0 Abs Immat Gran (auto) 0.02 Absolute Neuts (auto) 4.8 Absolute Nucleated RBC 0.000 Nucleated RBC % (auto) 0.0 PT INR APTT Anion Gap 13 Estim Creat Clear Calc 99.4 Estimated GFR > 60 Random Glucose 75 Lactic Acid Calcium 9.0 D Total Bilirubin 0.3 AST 11 ALT 6 Alkaline Phosphatase 57 Total Protein 7.2 Albumin 3.3 L Lipase Beta HCG, Quant Urine Color Urine Appearance Urine pH Ur Specific [place] Urine Protein Urine Glucose (UA) Urine Ketones Urine Blood Urine Nitrite Ur Leukocyte Esterase Urine RBC Urine WBC Ur Squamous Epith Cells Urine Bacteria Hyaline Casts Blood Type A Positive Antibody Screen NEGATIVE Crossmatch See Detail Imaging Radiologist's Impressions: Impressions Abdomen/Pelvis CT 08/17/22 23:24 IMPRESSION: 1. Findings are consistent with acute cholecystitis. 2. Incidental note made of mild splenomegaly and moderate free fluid in the cul-de-sac along with other findings described above. Fleischner guidelines were followed. Assessment and Plan (1) HIV (human immunodeficiency virus infection): Status: Acute Plan 42yo F with HIV/AIDS on HAART without meaningful immunological recovery and thus still on PJP prophylaxis admitted to the general surgery service for luisito cystectomy for acute calculous cholecystitis # HIV/AIDS - continue Biktarvy and Bactrim. Overdue for CD4 and viral load monitoring; tests sent and results will be forward to [facility]. Due to immunodeficiency, at a somewhat higher risk of postoperative infective complications. She is certainly at risk of opportunistic infections such as AIDS cholangiopathy due to Cryptosporidium, or disseminated MAC infection [if her viral load is not fully suppressed], but these are doubtful given her completely normal LFTs, in particularly, her alkaline phosphatase # BRETT - transfusing 1 unit pRBCs. Continue iron replacement + contraceptive patch. # acute cholecystitis - appropriately on pip-familia, to OR for lap luisito later today Thank you for this consultation. We will continue follow along with you. Time Spent With Patient Time: Total time managing care of this patient today ____ minutes.
--- NOTE | 2022-08-18 12:58 | HO.ANESPROP2 ---
HPI - Anesthesia Eval Consult details Narrative: for lap cholecystectomy PMFSH Active Problems Active Problems: All Active Problems (Updated 08/18/22 @ 00:11 by Carter Steel MD) HIV (human immunodeficiency virus infection) (Acute) AIDS (acquired immune deficiency syndrome) (Acute) Anemia (Chronic) Acute cholecystitis (Acute) Past Medical History Medical History AIDS (acquired immune deficiency syndrome) Anemia Centers for Disease Control and Prevention category C3 HIV infection ABILIO III (cervical intraepithelial neoplasia grade III) with severe dysplasia Family History Family history of problems with anesthesia: No Surgical History Surgical History Hx of section History of Problems with Anesthesia: No Social History Social History Household Members: Family Housing: Apartment Do you presently have visiting nurse or other home services: No Alcohol intake: never Patient Tobacco Use Status: Never used Tobacco Tobacco use type: Cigarette Smoked in Last 30 Days: No e-Cigarette/Vaping Use: Never Used Second Hand Smoke Exposure: No Use of substances other than those prescribed or required for medical reasons: No Currently Displaying Signs/Symptoms of Drug Intoxication Withdrawal: No Any prior treatment program specific to substance use: No Have you been hit, kicked, punched, or otherwise hurt by someone within the past year? If so, by whom?: No Do you feel safe in your current relationship?: Yes Is there a partner from a previous relationship who is making you feel unsafe now?: No Are you made to feel afraid or neglected: No Are you DNR?: No Advance Directives: No Advance Directives Information Provided: No Do you have thoughts of harming others: None Do you have a plan to hurt others: No Plan Recently lost weight without trying: No Eating poorly because of decreased appetite: No Nutrition Risks: No Nutritional Risk Patient : No : No Poor oral hygiene: No service: No Current occupational status: unemployed and disabled Meds Allergies Allergy/AdvReac Type Severity Reaction Status Date / Time No Known Allergies Allergy Verified 08/17/22 15:57 [No Known Allergies*] Active Medications: Current Medications Acetaminophen (Acetaminophen 325 Mg Tablet) 975 mg PO Q6H PRN PRN Reason: Pain, Mild (Pain Scale 1-3) Bictegravir/Emtricitabine/Tenofovir (Bictegrav/Emtricit/Tenofov Ala Tablet) 1 tab PO DAILY [facility] Last Admin: 08/18/22 11:28 Dose: Not Given Cyanocobalamin (Cyanocobalamin (Vitamin B-12) 1,000 Mcg Tablet) 1,000 mcg PO DAILY [facility] Last Admin: 08/18/22 11:28 Dose: Not Given Famotidine (Famotidine 20 Mg Tablet) 1 mg PO DAILY [facility] Ferrous Sulfate (Ferrous Sulfate 324 Mg Tablet.Dr) 324 mg PO BID [facility] Hydromorphone HCl (Hydromorphone Hcl 0.5 Mg/0.5 Ml Syringe) 0.25 mg IVPUSH Q2H PRN; Protocol PRN Reason: Pain, Moderate(Pain Scale 4-6) Lactated Ringer's (Lr) 1,000 mls @ 125 mls/hr IVCONT .Q8H [facility] Last Admin: 08/18/22 08:42 Dose: 125 mls/hr Piperacillin Sod/Tazobactam (Sod 3.375 gm/ Sodium Chloride) 50 mls @ 100 mls/hr IV Q6H [facility] Last Infusion: 08/18/22 06:47 Dose: Infused Ondansetron HCl (Ondansetron Hcl 4 Mg/2 Ml Vial) 4 mg IVPUSH Q6H PRN PRN Reason: Nausea and Vomiting Trimethoprim/Sulfamethoxazole (Sulfamethox/Trimeth 400/80 Tablet) 1 tab PO DAILY [facility] Last Admin: 08/18/22 11:28 Dose: Not Given Home Medications Medication Instructions Recorded Confirmed Last Taken Type bictegravir 50 mg-emtricitabine 1 tab PO DAILY 02/23/21 08/18/22 08/11/22 History 200 mg-tenofovir alafenam 25 mg tablet (Biktarvy) famotidine 1 tab PO DAILY 10/13/21 08/18/22 08/11/22 History sulfamethoxazole 400 1 tab PO DAILY 10/13/21 08/18/22 08/11/22 History mg-trimethoprim 80 mg tablet norelgestromin 150 mcg-e.estradiol 1 patch topical 08/18/22 08/11/22 History 35 mcg/24 hr weekly transderm patch (Anselmolanann) Exam Exam Date and Time: August 18, 2022 1258 Height,Weight and Vital Signs: Height 5 ft Weight 61.1 kg Last Vital Signs Temp 98.3 F 08/18/22 12:38 Pulse 101 H 08/18/22 12:38 Resp 16 08/18/22 12:38 BP 125/77 08/18/22 12:38 Pulse Ox 96 08/18/22 12:38 O2 Del Method Room Air 08/18/22 12:38 Pertinent Lab Results Pertinent Lab Results: Laboratory Tests 08/17/22 08/17/22 08/17/22 17:54 17:54 17:54 WBC 9.5 RBC 4.06 L Hgb 8.4 L Hct 29.0 L MCV 71.4 L MCH 20.7 L MCHC 29.0 L RDW 22.1 H Plt Count 397 MPV 9.2 L Immature Gran % (Auto) 0.8 H Neut % (Auto) 78.1 H Lymph % (Auto) 14.5 L [place] % (Auto) 5.9 Eos % (Auto) 0.5 Baso % (Auto) 0.2 Lymph # (Auto) 1.4 [place] # (Auto) 0.6 Eos # (Auto) 0.1 Baso # (Auto) 0.0 Abs Immat Gran (auto) 0.08 H Absolute Neuts (auto) 7.4 Absolute Nucleated RBC 0.000 Nucleated RBC % (auto) 0.0 PT INR APTT Sodium 138 Potassium 3.7 Chloride 105 Carbon Dioxide 23 Anion Gap 14 BUN 9 Creatinine 0.64 Estim Creat Clear Calc 90.6 Estimated GFR > 60 Random Glucose 86 Lactic Acid Calcium 10.1 D Total Bilirubin 0.6 AST 11 ALT 6 Alkaline Phosphatase 67 Total Protein 8.5 H Albumin 4.0 Lipase 8 Beta HCG, Quant < 2 Urine Color Urine Appearance Urine pH Ur Specific [place] Urine Protein Urine Glucose (UA) Urine Ketones Urine Blood Urine Nitrite Ur Leukocyte Esterase Urine RBC Urine WBC Ur Squamous Epith Cells Urine Bacteria Hyaline Casts Blood Type Antibody Screen Crossmatch 08/17/22 08/18/22 08/18/22 17:54 00:09 00:17 WBC RBC Hgb Hct MCV MCH MCHC RDW Plt Count MPV Immature Gran % (Auto) Neut % (Auto) Lymph % (Auto) [place] % (Auto) Eos % (Auto) Baso % (Auto) Lymph # (Auto) [place] # (Auto) Eos # (Auto) Baso # (Auto) Abs Immat Gran (auto) Absolute Neuts (auto) Absolute Nucleated RBC Nucleated RBC % (auto) PT 11.7 INR 1.0 APTT 28.4 Sodium Potassium Chloride Carbon Dioxide Anion Gap BUN Creatinine Estim Creat Clear Calc Estimated GFR Random Glucose Lactic Acid 0.7 Calcium Total Bilirubin AST ALT Alkaline Phosphatase Total Protein Albumin Lipase Beta HCG, Quant Urine Color Dark Yellow Urine Appearance Clear Urine pH 6.5 Ur Specific [place] 1.025 Urine Protein 100 (2+) H Urine Glucose (UA) Negative Urine Ketones >=160 Urine Blood Moderate (2+) H Urine Nitrite Negative Ur Leukocyte Esterase Negative Urine RBC >20 H Urine WBC 0-5 Ur Squamous Epith Cells 3-5 Urine Bacteria None Seen Hyaline Casts 0-2 Blood Type Antibody Screen Crossmatch 08/18/22 08/18/22 08/18/22 05:41 05:41 08:23 WBC 6.4 RBC 3.38 L Hgb 7.1 L Hct 24.2 L MCV 71.6 L MCH 21.0 L MCHC 29.3 L RDW 21.8 H Plt Count 325 MPV 9.1 L Immature Gran % (Auto) 0.3 Neut % (Auto) 74.9 H Lymph % (Auto) 17.2 L [place] % (Auto) 6.3 Eos % (Auto) 1.1 Baso % (Auto) 0.2 Lymph # (Auto) 1.1 L [place] # (Auto) 0.4 Eos # (Auto) 0.1 Baso # (Auto) 0.0 Abs Immat Gran (auto) 0.02 Absolute Neuts (auto) 4.8 Absolute Nucleated RBC 0.000 Nucleated RBC % (auto) 0.0 PT INR APTT Sodium 140 Potassium 3.4 Chloride 109 H Carbon Dioxide 21 L Anion Gap 13 BUN 7 L Creatinine 0.59 Estim Creat Clear Calc 99.4 Estimated GFR > 60 Random Glucose 75 Lactic Acid Calcium 9.0 D Total Bilirubin 0.3 AST 11 ALT 6 Alkaline Phosphatase 57 Total Protein 7.2 Albumin 3.3 L Lipase Beta HCG, Quant Urine Color Urine Appearance Urine pH Ur Specific [place] Urine Protein Urine Glucose (UA) Urine Ketones Urine Blood Urine Nitrite Ur Leukocyte Esterase Urine RBC Urine WBC Ur Squamous Epith Cells Urine Bacteria Hyaline Casts Blood Type A Positive Antibody Screen NEGATIVE Crossmatch See Detail Airway Mallampati Class: I TM Dist: >3cm Neck ROM: Full Denture: Upper Partial: Lower Loose/Missing/Broken Teeth: Yes, Upper and Lower Heart: ok Lungs: ok Assessment and Plan Assessment Anesthesia Assessment: Anesthesia Plan Discussed and Chart Reviewed Final Anesthetic Review Family History of Problems with Anesthesia: No History of Problems with Anesthesia: No NPO: Yes ASA Class: III Final Preanesthetic Review: No Changes in Pt Med Stat, Meds/Allgs Chart Reviewed, Consent Obtained/Reviewed and Anes Risks/Benef Reviewed Patient Risk: Intermediate Procedure Risk: Intermediate Anesthetic Plan Anesthetic Plan: GA and Agree w/ Assess. and Plan Disposition: Standard PACU
[2022-08-18 13:15] LABS: UPreg QC Valid YES; Urine Pregnancy NEGATIVE (NEGATIVE)
[2022-08-18] MEDS: oxyCODONE HCl Immed Release 5 MG TABLET PO (18:09)
[2022-08-18] MEDS: Acetaminophen 325 MG TABLET 650 MG PO (18:09)
[2022-08-18 18:33] LABS: MANUAL DIFF FLAG NO
[2022-08-18 18:35] LABS: Basophils Percent Auto 0.1 % (0-2); Eosinophils Percent Auto 0.1 % (0-4); Hematocrit 28.4 % (37.0-47.0); Hemoglobin 8.6 g/dl (12.0-16.0); Imm Gran Abs Auto 0.03 X10*3/uL (0.00-0.03); Imm Gran Pct Auto 0.3 % (0.0-0.4); Lymphocytes Absolute Auto 0.7 X10*3/uL (1.2-4.9); Mean Corpuscular HGB Conc 30.3 g/dl (31.0-35.0); Mean Corpuscular Volume 75.9 fL (80.0-98.0); Mean Platelet Volume 8.6 fL (9.4-12.3); Monocytes Absolute Auto 0.3 X10*3/uL (0.1-1.2); Monocytes Percent Auto 3.6 % (2-11); Neutrophils Absolute Auto 7.6 x10*3/uL (2.0-8.3); Neutrophils Percent Auto 87.9 % (45-73); Platelet Count 308 X10*3/uL (160-400); Red Blood Count 3.74 X10*6/uL (4.20-5.50); Red Cell Distribution Width 24.5 % (11.0-16.0); White Blood Count 8.6 X10*3/uL (4.8-10.8)
[2022-08-18] MEDS: Ferrous Sulfate 324 MG TABLET.DR PO (21:49)
[2022-08-18] MEDS: Docusate Sodium 100 MG CAPSULE 200 MG PO (21:49)
[2022-08-19] VITALS (8 sets, daily range): BP systolic 125–140; BP diastolic 65–75; PULSE 65–100; RESP 18–19; TEMP 36.4–38.1; O2SAT 94–98
[2022-08-19] MEDS: Piperacillin Sodium/Tazobactam 3.375 GM in 0.9 % Sodium Chloride 50 ML IV ×4 (01:08→18:00)
[2022-08-19] MEDS: Lactated Ringers 1,000 ML 125 ML IVCONT ×3 (01:40→13:58)
[2022-08-19 06:11] LABS: Basophils Percent Auto 0.2 % (0-2); Eosinophils Absolute Auto 0.1 X10*3/uL (0.0-0.4); Eosinophils Percent Auto 1.3 % (0-4); Hematocrit 28.3 % (37.0-47.0); Hemoglobin 8.6 g/dl (12.0-16.0); Imm Gran Abs Auto 0.01 X10*3/uL (0.00-0.03); Imm Gran Pct Auto 0.2 % (0.0-0.4); Lymphocytes Absolute Auto 0.9 X10*3/uL (1.2-4.9); Lymphocytes Percent Auto 16.1 % (20-40); MANUAL DIFF FLAG NO; Mean Corpuscular HGB Conc 30.4 g/dl (31.0-35.0); Mean Corpuscular Hemoglobin 22.9 pg (27.0-33.0); Mean Corpuscular Volume 75.3 fL (80.0-98.0); Monocytes Absolute Auto 0.4 X10*3/uL (0.1-1.2); Monocytes Percent Auto 8.1 % (2-11); Neutrophils Absolute Auto 3.9 x10*3/uL (2.0-8.3); Neutrophils Percent Auto 74.1 % (45-73); Platelet Count 309 X10*3/uL (160-400); Red Blood Count 3.76 X10*6/uL (4.20-5.50); Red Cell Distribution Width 24.2 % (11.0-16.0); White Blood Count 5.3 X10*3/uL (4.8-10.8)
[2022-08-19 06:30] LABS: Alanine Aminotransferase 9 U/L (0-31); Alkaline Phosphatase 51 U/L (39-117); Anion Gap 14 (12-20); Aspartate Amino Transferase 24 U/L (5-31); Bilirubin Total 0.4 mg/dL (0.0-1.0); Blood Urea Nitrogen 4 mg/dL (9-16); Calcium 8.9 mg/dL (8.4-10.2); Carbon Dioxide 22 mmol/L (22-29); Chloride 109 mmol/L (96-108); Creatinine Clr Calc Pharmacy 104.6; Estimated Glomerular Filt Rate > 60; Glucose Random 71 mg/dL (60-115); Potassium 3.5 mmol/L (3.3-5.1); Sodium 141 mmol/L (135-145); Total Protein 6.7 g/dL (6.5-8.0)
[2022-08-19] MEDS: Cyanocobalamin (Vitamin B-12) 1,000 MCG TABLET 1000 MCG PO (07:54)
[2022-08-19] MEDS: Bictegrav/Emtricit/Tenofov Ala TABLET 1 TAB PO (07:54)
[2022-08-19] MEDS: Sulfamethox/Trimeth 400/80 TABLET 1 TAB PO (07:54)
[2022-08-19] MEDS: Famotidine 20 MG TABLET PO (07:54)
[2022-08-19] MEDS: Ferrous Sulfate 324 MG TABLET.DR PO ×2 (07:55→20:26)
[2022-08-19] MEDS: Docusate Sodium 100 MG CAPSULE 200 MG PO ×2 (07:55→20:26)
--- NOTE | 2022-08-19 08:12 | PM.PNGS ---
Subjective Subjective Date of Service: 08/19/22 Patient reports: no new complaints, feels better and tolerating liquids well Interval history: The patient is seen with the help of interpretive services. She denies any pain, nausea or vomiting and did drink some clear liquid last night. She denies chest pain, difficulty breathing or shortness of breath. Via foreign language interpreter, I explained the intraoperative findings and need to keep her until tomorrow given that pending Gram stain and risk for bactobilia. Physical Exam Vital Signs: Vital Signs: Last Vital Signs Temp 98 F 08/19/22 04:00 Pulse 65 08/19/22 04:00 Resp 18 08/19/22 04:00 BP 125/65 08/19/22 04:00 Pulse Ox 98 08/19/22 04:00 O2 Del Method Room Air 08/19/22 04:00 O2 Flow Rate 2 08/18/22 19:43 BMI result Body Mass Index 26.3 On exam she is anicteric She is nontoxic She is having no respiratory difficulty Her abdomen has expected incisional tenderness and the SHERIF is putting out serosanguineous material as to be expected. Objective Data Active Medications Acetaminophen (Acetaminophen 325 Mg Tablet) 975 mg PO Q6H PRN PRN Reason: Pain, Mild (Pain Scale 1-3) Bictegravir/Emtricitabine/Tenofovir (Bictegrav/Emtricit/Tenofov Ala Tablet) 1 tab PO DAILY [facility] Last Admin: 08/19/22 07:54 Dose: 1 tab Documented By: YAW Cyanocobalamin (Cyanocobalamin (Vitamin B-12) 1,000 Mcg Tablet) 1,000 mcg PO DAILY [facility] Last Admin: 08/19/22 07:54 Dose: 1,000 mcg Documented By: YAW Docusate Sodium (Docusate Sodium 100 Mg Capsule) 200 mg PO BID [facility] Last Admin: 08/19/22 07:55 Dose: 200 mg Documented By: YAW Famotidine (Famotidine 20 Mg Tablet) 20 mg PO DAILY [facility] Last Admin: 08/19/22 07:54 Dose: 20 mg Documented By: YAW Fentanyl (Fentanyl Citrate/Pf 100 Mcg/2 Ml Vial) 50 mcg IVPUSH Q5M PRN; Protocol PRN Reason: Pain, Severe (Pain Scale 7-10) Ferrous Sulfate (Ferrous Sulfate 324 Mg Tablet.) 324 mg PO BID [facility] Last Admin: 08/19/22 07:55 Dose: 324 mg Documented By: YAW Hydromorphone HCl (Hydromorphone Hcl 0.5 Mg/0.5 Ml Syringe) 0.25 mg IVPUSH Q2H PRN; Protocol PRN Reason: Pain, Moderate(Pain Scale 4-6) Hydromorphone HCl (Hydromorphone Hcl 0.5 Mg/0.5 Ml Syringe) 0.5 mg IVPUSH Q5M PRN; Protocol PRN Reason: Pain, Severe (Pain Scale 7-10) Lactated Ringer's (Lr) 1,000 mls @ 125 mls/hr IVCONT .Q8H [facility] Last Admin: 08/19/22 07:54 Dose: 125 mls/hr Documented By: YAW Piperacillin Sod/Tazobactam (Sod 3.375 gm/ Sodium Chloride) 50 mls @ 100 mls/hr IV Q6H [facility] Last Admin: 08/19/22 07:54 Dose: 100 mls/hr Documented By: YAW Patient Own ( Norelgestromin-Ethin .Estradiol [Xulane] 150-35 Mcg/24 Hr Patch W 1 patch TOPICAL We@2300 [facility] Last Admin: 08/18/22 23:34 Dose: 1 patch Documented By: FRIDA Ondansetron HCl (Ondansetron Hcl 4 Mg/2 Ml Vial) 4 mg IVPUSH Q6H PRN PRN Reason: Nausea and Vomiting Oxycodone HCl (Oxycodone Hcl Immed Release 5 Mg Tablet) 5 mg PO Q4H PRN PRN Reason: Pain, Moderate(Pain Scale 4-6) Last Admin: 08/18/22 18:09 Dose: 5 mg Documented By: NAVEED Trimethoprim/Sulfamethoxazole (Sulfamethox/Trimeth 400/80 Tablet) 1 tab PO DAILY [facility] Last Admin: 08/19/22 07:54 Dose: 1 tab Documented By: YAW Labs 08/19/22 05:23 08/19/22 05:23 Labs: Laboratory Results - last 24 hr 08/18/22 08/18/22 08/18/22 08:23 12:00 18:22 MCV 75.9 L MCH 23.0 L MCHC 30.3 L RDW 24.5 H Plt Count 308 MPV 8.6 L Immature Gran % (Auto) 0.3 Neut % (Auto) 87.9 H Lymph % (Auto) 8.0 L [place] % (Auto) 3.6 Eos % (Auto) 0.1 Baso % (Auto) 0.1 Lymph # (Auto) 0.7 L [place] # (Auto) 0.3 Eos # (Auto) 0.0 Baso # (Auto) 0.0 Abs Immat Gran (auto) 0.03 Absolute Neuts (auto) 7.6 Absolute Nucleated RBC 0.000 Nucleated RBC % (auto) 0.0 Anion Gap Estim Creat Clear Calc Estimated GFR Random Glucose Calcium Total Bilirubin AST ALT Alkaline Phosphatase Total Protein Albumin Urine Test NEGATIVE Blood Type A Positive Antibody Screen NEGATIVE Crossmatch See Detail 08/19/22 08/19/22 05:23 05:23 MCV 75.3 L MCH 22.9 L MCHC 30.4 L RDW 24.2 H Plt Count 309 MPV 9.0 L Immature Gran % (Auto) 0.2 Neut % (Auto) 74.1 H Lymph % (Auto) 16.1 L [place] % (Auto) 8.1 Eos % (Auto) 1.3 Baso % (Auto) 0.2 Lymph # (Auto) 0.9 L [place] # (Auto) 0.4 Eos # (Auto) 0.1 Baso # (Auto) 0.0 Abs Immat Gran (auto) 0.01 Absolute Neuts (auto) 3.9 Absolute Nucleated RBC 0.000 Nucleated RBC % (auto) 0.0 Anion Gap 14 Estim Creat Clear Calc 104.6 Estimated GFR > 60 Random Glucose 71 Calcium 8.9 Total Bilirubin 0.4 AST 24 ALT 9 Alkaline Phosphatase 51 Total Protein 6.7 Albumin 3.0 L Urine Test Blood Type Antibody Screen Crossmatch Microbiology Microbiology Results: Microbiology 08/18/22 00:09 Blood Culture - Preliminary Blood - Venous No growth after 24 hours. 08/18/22 00:09 Blood Culture - Preliminary Blood - Venous No growth after 24 hours. Gram stain and cultures are pending Procedures Date of Service Date of Service: 08/19/22 Progress Note: A&P Assessment and plan (1) Acute cholecystitis: Status: Acute (2) Anemia: Status: Chronic (3) AIDS (acquired immune deficiency syndrome): Status: Acute (4) HIV (human immunodeficiency virus infection): Status: Acute Plan Patient's hemoglobin has remained stable; continue antibiotics Increased to low-fat diet and continue to monitor SHERIF output Patient needs continued IV antibiotics given her low CD4 count and unclear etiology for this gallbladder pathology. Encourage out of bed/ambulation and incentive spirometry. Okay to resume other medications at this time. Time Spent With Patient Time: Total time managing care of this patient today ____ minutes. Quality Stroke Does the patient have a stroke diagnosis?: No VTE Prior VTE?: No VTE Risk Level:: Surgical - moderate VTE Device Contraindication: N/A - Device Ordered VTE Drug Contraindication: N/A - Med Ordered
--- NOTE | 2022-08-19 09:14 | HO.POSTANES ---
Post Anesthesia Evaluation Post Anesthesia Evaluation Date of Service: 08/19/22 Vital Signs: Vital Signs Temp Pulse Resp BP Pulse Ox O2 Del Method 08/19/22 08:00 97.5 F 100 18 139/73 94 Room Air 08/19/22 04:00 98 F 65 18 125/65 98 Room Air 08/18/22 23:23 97.8 F 84 18 113/65 94 Room Air Anesthesia: General Endotracheal-GETA Mental Status: Awake Pain Control: Satisfactory Nausea/Vomiting: None Hydration: Adequate Anesthesia-Related Issues: No Anes. Related Issues
--- NOTE | 2022-08-19 09:34 | HO.PM.IMPN ---
Subjective Subjective Date of Service: 08/19/22 Interval History: This history was taken in Bulgarian from the patient. No fever Pain controlled Eating Review of Systems Review of Systems: Yes all other systems are reviewed and are negative Physical Exam Vital Signs: Vital Signs: Last Vital Signs Temp 97.5 F 08/19/22 08:00 Pulse 100 08/19/22 08:00 Resp 18 08/19/22 08:00 BP 139/73 08/19/22 08:00 Pulse Ox 94 08/19/22 08:00 O2 Del Method Room Air 08/19/22 08:00 O2 Flow Rate 2 08/18/22 19:43 BMI result Body Mass Index 26.3 Gen: in no acute distress HEENT: sclera anicteric, moist mucus membranes, no thrush Neck: supple, no LAD Lungs: clear to auscultation bilaterally Heart: regular rate and rhythm, no murmurs Abd: soft, non-tender, incisions C/D/I, SHERIF with serosanguinous liquid Ext: no edema Skin: warm/well-perfused Neuro: alert and oriented x3, no focal findings Psych: appropriate affect Objective Data Active Medications Acetaminophen (Acetaminophen 325 Mg Tablet) 975 mg PO Q6H PRN PRN Reason: Pain, Mild (Pain Scale 1-3) Bictegravir/Emtricitabine/Tenofovir (Bictegrav/Emtricit/Tenofov Ala Tablet) 1 tab PO DAILY [facility] Last Admin: 08/19/22 07:54 Dose: 1 tab Documented By: YAW Cyanocobalamin (Cyanocobalamin (Vitamin B-12) 1,000 Mcg Tablet) 1,000 mcg PO DAILY [facility] Last Admin: 08/19/22 07:54 Dose: 1,000 mcg Documented By: YAW Docusate Sodium (Docusate Sodium 100 Mg Capsule) 200 mg PO BID [facility] Last Admin: 08/19/22 07:55 Dose: 200 mg Documented By: YAW Famotidine (Famotidine 20 Mg Tablet) 20 mg PO DAILY [facility] Last Admin: 08/19/22 07:54 Dose: 20 mg Documented By: YAW Fentanyl (Fentanyl Citrate/Pf 100 Mcg/2 Ml Vial) 50 mcg IVPUSH Q5M PRN; Protocol PRN Reason: Pain, Severe (Pain Scale 7-10) Ferrous Sulfate (Ferrous Sulfate 324 Mg Tablet.) 324 mg PO BID [facility] Last Admin: 08/19/22 07:55 Dose: 324 mg Documented By: YAW Hydromorphone HCl (Hydromorphone Hcl 0.5 Mg/0.5 Ml Syringe) 0.25 mg IVPUSH Q2H PRN; Protocol PRN Reason: Pain, Moderate(Pain Scale 4-6) Hydromorphone HCl (Hydromorphone Hcl 0.5 Mg/0.5 Ml Syringe) 0.5 mg IVPUSH Q5M PRN; Protocol PRN Reason: Pain, Severe (Pain Scale 7-10) Lactated Ringer's (Lr) 1,000 mls @ 70 mls/hr IVCONT .[id number] [facility] Last Admin: 08/19/22 07:54 Dose: 125 mls/hr Documented By: YAW Piperacillin Sod/Tazobactam (Sod 3.375 gm/ Sodium Chloride) 50 mls @ 100 mls/hr IV Q6H [facility] Last Infusion: 08/19/22 08:27 Dose: 0 mls/hr Documented By: YAW Patient Own ( Norelgestromin-Ethin .Estradiol [Xulane] 150-35 Mcg/24 Hr Patch W 1 patch TOPICAL We@2300 [facility] Last Admin: 08/18/22 23:34 Dose: 1 patch Documented By: FRIDA Ondansetron HCl (Ondansetron Hcl 4 Mg/2 Ml Vial) 4 mg IVPUSH Q6H PRN PRN Reason: Nausea and Vomiting Oxycodone HCl (Oxycodone Hcl Immed Release 5 Mg Tablet) 5 mg PO Q4H PRN PRN Reason: Pain, Moderate(Pain Scale 4-6) Last Admin: 08/18/22 18:09 Dose: 5 mg Documented By: NAVEED Trimethoprim/Sulfamethoxazole (Sulfamethox/Trimeth 400/80 Tablet) 1 tab PO DAILY [facility] Last Admin: 08/19/22 07:54 Dose: 1 tab Documented By: YAW Labs 08/19/22 05:23 08/19/22 05:23 Labs: Laboratory Results - last 24 hr 08/18/22 08/18/22 08/18/22 08:23 12:00 18:22 MCV 75.9 L MCH 23.0 L MCHC 30.3 L RDW 24.5 H Plt Count 308 MPV 8.6 L Immature Gran % (Auto) 0.3 Neut % (Auto) 87.9 H Lymph % (Auto) 8.0 L [place] % (Auto) 3.6 Eos % (Auto) 0.1 Baso % (Auto) 0.1 Lymph # (Auto) 0.7 L [place] # (Auto) 0.3 Eos # (Auto) 0.0 Baso # (Auto) 0.0 Abs Immat Gran (auto) 0.03 Absolute Neuts (auto) 7.6 Absolute Nucleated RBC 0.000 Nucleated RBC % (auto) 0.0 Anion Gap Estim Creat Clear Calc Estimated GFR Random Glucose Calcium Total Bilirubin AST ALT Alkaline Phosphatase Total Protein Albumin Urine Test NEGATIVE Blood Type A Positive Antibody Screen NEGATIVE Crossmatch See Detail 08/19/22 08/19/22 05:23 05:23 MCV 75.3 L MCH 22.9 L MCHC 30.4 L RDW 24.2 H Plt Count 309 MPV 9.0 L Immature Gran % (Auto) 0.2 Neut % (Auto) 74.1 H Lymph % (Auto) 16.1 L [place] % (Auto) 8.1 Eos % (Auto) 1.3 Baso % (Auto) 0.2 Lymph # (Auto) 0.9 L [place] # (Auto) 0.4 Eos # (Auto) 0.1 Baso # (Auto) 0.0 Abs Immat Gran (auto) 0.01 Absolute Neuts (auto) 3.9 Absolute Nucleated RBC 0.000 Nucleated RBC % (auto) 0.0 Anion Gap 14 Estim Creat Clear Calc 104.6 Estimated GFR > 60 Random Glucose 71 Calcium 8.9 Total Bilirubin 0.4 AST 24 ALT 9 Alkaline Phosphatase 51 Total Protein 6.7 Albumin 3.0 L Urine Test Blood Type Antibody Screen Crossmatch Microbiology Microbiology Results: Microbiology 08/18/22 14:02 Gram Stain - Final Gallbladder Fluid 08/18/22 00:09 Blood Culture - Preliminary Blood - Venous No growth after 24 hours. 08/18/22 00:09 Blood Culture - Preliminary Blood - Venous No growth after 24 hours. Assessment and Plan (1) HIV (human immunodeficiency virus infection): Status: [facility] d#2 42yo F with HIV/AIDS on HAART without meaningful immunological recovery [CD4 88 in April 2021, not checked since] and thus still on PJP prophylaxis admitted to the general surgery service for cholecystectomy for acute calculous cholecystitis hospitalist service consulted due to HIV/AIDS POD#1 lap luisito 08/18/22, found to have gangrenous, very thick/enlarged gallbladder # acute cholecystitis - Appropriately on pip-familia d#2 and continue pending gallbladder fluid cultures. Due to her immunodeficiency, she is at a higher risk of postoperative infective complications. Doubt cryptosporidial AIDS cholangiopathy or MAC infection given LFTs, josé alkphos, were completely normal. Postop management per Surgery Team. # HIV/AIDS - Continue Biktarvy for ART and Bactrim for PJP prophylaxis.? CD4 + viral load sent yesterday and pt will follow up at [facility]. # BRETT due to menorrhagia - Transfused 1u pRBCs preop with appropriate response in H+H. Continue iron replacement + contraceptive patch. # VTE ppx: SCDs # Dispo: likely home tomorrow if stable surgically Thank you for this consultation. We will continue to follow along with you. Time Spent With Patient Time: Total time managing care of this patient today __40__ minutes. Quality Stroke Does the patient have a stroke diagnosis?: No VTE Prior VTE?: No VTE Risk Level:: Surgical - moderate VTE Device Contraindication: N/A - Device Ordered VTE Drug Contraindication: N/A - Med Ordered
--- NOTE | 2022-08-19 10:15 | MHC.CM.PN ---
PER MD ROUNDS, PT LIKELY TO BE READY TO DC TOMORROW
--- NOTE | 2022-08-19 11:05 | PC.NURSE ---
Oral Temp 100.5, HR 100, PA notified.
[2022-08-19] MEDS: Acetaminophen 325 MG TABLET 975 MG PO (12:15)
[2022-08-20] VITALS (8 sets, daily range): BP systolic 116–136; BP diastolic 65–79; PULSE 65–101; RESP 16–18; TEMP 36.4–38.1; O2SAT 92–108
[2022-08-20] MEDS: Lactated Ringers 1,000 ML 125 ML IVCONT (00:05)
[2022-08-20] MEDS: Piperacillin Sodium/Tazobactam 3.375 GM in 0.9 % Sodium Chloride 50 ML IV ×4 (01:11→18:02)
[2022-08-20 06:19] LABS: MANUAL DIFF FLAG NO
[2022-08-20 06:23] LABS: Basophils Percent Auto 0.2 % (0-2); Eosinophils Percent Auto 0.2 % (0-4); Hematocrit 26.7 % (37.0-47.0); Hemoglobin 8.2 g/dl (12.0-16.0); Imm Gran Abs Auto 0.02 X10*3/uL (0.00-0.03); Imm Gran Pct Auto 0.4 % (0.0-0.4); Lymphocytes Absolute Auto 0.9 X10*3/uL (1.2-4.9); Lymphocytes Percent Auto 18.3 % (20-40); Mean Corpuscular HGB Conc 30.7 g/dl (31.0-35.0); Mean Corpuscular Hemoglobin 22.8 pg (27.0-33.0); Mean Corpuscular Volume 74.2 fL (80.0-98.0); Mean Platelet Volume 8.9 fL (9.4-12.3); Monocytes Absolute Auto 0.3 X10*3/uL (0.1-1.2); Monocytes Percent Auto 6.2 % (2-11); Neutrophils Absolute Auto 3.6 x10*3/uL (2.0-8.3); Neutrophils Percent Auto 74.7 % (45-73); Platelet Count 305 X10*3/uL (160-400); White Blood Count 4.8 X10*3/uL (4.8-10.8)
[2022-08-20 06:36] LABS: Alanine Aminotransferase 9 U/L (0-31); Albumin Level 3.1 g/dL (3.5-5.0); Alkaline Phosphatase 47 U/L (39-117); Anion Gap 13 (12-20); Aspartate Amino Transferase 21 U/L (5-31); Bilirubin Total 0.4 mg/dL (0.0-1.0); Blood Urea Nitrogen 3 mg/dL (9-16); Calcium 8.6 mg/dL (8.4-10.2); Carbon Dioxide 21 mmol/L (22-29); Chloride 108 mmol/L (96-108); Creatinine Clr Calc Pharmacy 88.8; Estimated Glomerular Filt Rate > 60; Glucose Random 92 mg/dL (60-115); Potassium 3.1 mmol/L (3.3-5.1); Sodium 139 mmol/L (135-145); Total Protein 6.8 g/dL (6.5-8.0)
--- NOTE | 2022-08-20 07:58 | PM.PNGS ---
Subjective Subjective Date of Service: 08/20/22 Patient reports: no new complaints, feels better, still having pain, tolerating a regular diet, flatus and bowel movement Interval history: The patient is seen with the help of Jj from interpretive services. She reports expected epigastric and incisional pain but is tolerating her diet and denies any nausea or vomiting. She denies chest pain or difficulty breathing. She is only drawing about 500 cc max on incentive spirometry and had a T-max yesterday of 100.5 and current temp of 99 degrees. SHERIF continues to put out serosanguineous drainage to 130 cc over the past 24 hours Physical Exam Vital Signs: Vital Signs: Last Vital Signs Temp 99.0 F 08/20/22 07:00 Pulse 101 H 08/20/22 07:00 Resp 16 08/20/22 07:00 BP 136/75 08/20/22 07:00 Pulse Ox 93 08/20/22 07:00 O2 Del Method Room Air 08/20/22 07:00 O2 Flow Rate 2 08/18/22 19:43 BMI result Body Mass Index 26.3 On exam she is anicteric She is nontoxic She is in no acute respiratory distress Abdomen has appropriate incisional tenderness and SHERIF is non bilious, serosanguineous drainage Objective Data Active Medications Acetaminophen (Acetaminophen 325 Mg Tablet) 975 mg PO Q6H PRN PRN Reason: mild pain or fever Last Admin: 08/19/22 12:15 Dose: 975 mg Documented By: YAW Bictegravir/Emtricitabine/Tenofovir (Bictegrav/Emtricit/Tenofov Ala Tablet) 1 tab PO DAILY [facility] Last Admin: 08/19/22 07:54 Dose: 1 tab Documented By: YAW Cyanocobalamin (Cyanocobalamin (Vitamin B-12) 1,000 Mcg Tablet) 1,000 mcg PO DAILY [facility] Last Admin: 08/19/22 07:54 Dose: 1,000 mcg Documented By: YAW Docusate Sodium (Docusate Sodium 100 Mg Capsule) 200 mg PO BID [facility] Last Admin: 08/19/22 20:26 Dose: 200 mg Documented By: CARLOS Famotidine (Famotidine 20 Mg Tablet) 20 mg PO DAILY [facility] Last Admin: 08/19/22 07:54 Dose: 20 mg Documented By: YAW Fentanyl (Fentanyl Citrate/Pf 100 Mcg/2 Ml Vial) 50 mcg IVPUSH Q5M PRN; Protocol PRN Reason: Pain, Severe (Pain Scale 7-10) Ferrous Sulfate (Ferrous Sulfate 324 Mg Tablet.Dr) 324 mg PO BID [facility] Last Admin: 08/19/22 20:26 Dose: 324 mg Documented By: CARLOS Hydromorphone HCl (Hydromorphone Hcl 0.5 Mg/0.5 Ml Syringe) 0.25 mg IVPUSH Q2H PRN; Protocol PRN Reason: Pain, Moderate(Pain Scale 4-6) Hydromorphone HCl (Hydromorphone Hcl 0.5 Mg/0.5 Ml Syringe) 0.5 mg IVPUSH Q5M PRN; Protocol PRN Reason: Pain, Severe (Pain Scale 7-10) Piperacillin Sod/Tazobactam (Sod 3.375 gm/ Sodium Chloride) 50 mls @ 100 mls/hr IV Q6H [facility] Last Infusion: 08/20/22 06:44 Dose: 0 mls/hr Documented By: CARLOS Lactated Ringer's (Lr) 1,000 mls @ 50 mls/hr IVCONT .Q20H [facility] Patient Own ( Norelgestromin-Ethin .Estradiol [Xulane] 150-35 Mcg/24 Hr Patch W 1 patch TOPICAL We@2300 [facility] Last Admin: 08/18/22 23:34 Dose: 1 patch Documented By: FRIDA Ondansetron HCl (Ondansetron Hcl 4 Mg/2 Ml Vial) 4 mg IVPUSH Q6H PRN PRN Reason: Nausea and Vomiting Oxycodone HCl (Oxycodone Hcl Immed Release 5 Mg Tablet) 5 mg PO Q4H PRN PRN Reason: Pain, Moderate(Pain Scale 4-6) Last Admin: 08/18/22 18:09 Dose: 5 mg Documented By: NAVEED Trimethoprim/Sulfamethoxazole (Sulfamethox/Trimeth 400/80 Tablet) 1 tab PO DAILY [facility] Last Admin: 08/19/22 07:54 Dose: 1 tab Documented By: YAW Labs 08/20/22 05:44 08/20/22 05:44 Labs: Laboratory Results - last 24 hr 08/20/22 08/20/22 05:44 05:44 MCV 74.2 L MCH 22.8 L MCHC 30.7 L RDW 24.0 H Plt Count 305 MPV 8.9 L Immature Gran % (Auto) 0.4 Neut % (Auto) 74.7 H Lymph % (Auto) 18.3 L [place] % (Auto) 6.2 Eos % (Auto) 0.2 Baso % (Auto) 0.2 Lymph # (Auto) 0.9 L [place] # (Auto) 0.3 Eos # (Auto) 0.0 Baso # (Auto) 0.0 Abs Immat Gran (auto) 0.02 Absolute Neuts (auto) 3.6 Absolute Nucleated RBC 0.000 Nucleated RBC % (auto) 0.0 Anion Gap 13 Estim Creat Clear Calc 88.8 Estimated GFR > 60 Random Glucose 92 Calcium 8.6 Total Bilirubin 0.4 AST 21 ALT 9 Alkaline Phosphatase 47 Total Protein 6.8 Albumin 3.1 L Gram stain is negative for intra biliary organisms; cultures are currently pending Path is pending Microbiology Microbiology Results: Microbiology 08/18/22 00:09 Blood Culture - Preliminary Blood - Venous No growth after 48 hours. 08/18/22 00:09 Blood Culture - Preliminary Blood - Venous No growth after 48 hours. 08/18/22 14:02 Gram Stain - Final Gallbladder Fluid Routine Culture - Preliminary No growth to date. Procedures Date of Service Date of Service: 08/20/22 Progress Note: A&P Assessment and plan (1) S/P laparoscopic cholecystectomy: Status: Acute (2) Acute cholecystitis: Status: Acute (3) HIV (human immunodeficiency virus infection): Status: Acute (4) AIDS (acquired immune deficiency syndrome): Status: Acute (5) Anemia: Status: Chronic Plan Clinically, the patient is tolerating her diet, but having low-grade temps, likely due to poor incentive spirometry and atelectasis. Instructions were reviewed with the patient and nursing staff with the goal to get to a 1000 today. Her low-grade temps may confound discharge instructions given intermittent fevers so will reassess for possible discharge today versus tomorrow. Will discuss with the hospitalist team regarding the patient's low CD4 count and risk for opportunistic infection. Patient is not demonstrated a white count or abnormal LFTs which typically accompanied acute calculous cholecystitis; she is at risk for atypical presentations but, other than her poor respiratory effort/incentive spirometry issues and low-grade temps, should be surgically stable for discharge. Will coordinate with the hospitalist service. Time Spent With Patient Time: Total time managing care of this patient today ____ minutes. Quality Stroke Does the patient have a stroke diagnosis?: No VTE Prior VTE?: No VTE Risk Level:: Surgical - moderate VTE Device Contraindication: N/A - Device Ordered VTE Drug Contraindication: N/A - Med Ordered
[2022-08-20] MEDS: Sulfamethox/Trimeth 400/80 TABLET 1 TAB PO (08:00)
[2022-08-20] MEDS: Ferrous Sulfate 324 MG TABLET.DR PO ×2 (08:00→20:18)
[2022-08-20] MEDS: Bictegrav/Emtricit/Tenofov Ala TABLET 1 TAB PO (08:00)
[2022-08-20] MEDS: Docusate Sodium 100 MG CAPSULE 200 MG PO ×2 (08:00→20:18)
[2022-08-20] MEDS: Cyanocobalamin (Vitamin B-12) 1,000 MCG TABLET 1000 MCG PO (08:00)
[2022-08-20] MEDS: Famotidine 20 MG TABLET PO (08:00)
[2022-08-20] MEDS: Lactated Ringers 1,000 ML 50 ML IVCONT ×2 (08:01→20:17)
--- NOTE | 2022-08-20 09:53 | HO.PM.IMPN ---
Subjective Subjective Date of Service: 08/20/22 Interval History: Seen and evaluated this morning Feels better overall pain fairly controlled low grade fevers no other overnight events Review of Systems Review of Systems: Yes all other systems are reviewed and are negative Physical Exam Vital Signs: Vital Signs: Last Vital Signs Temp 99.0 F 08/20/22 07:00 Pulse 101 H 08/20/22 07:00 Resp 16 08/20/22 07:00 BP 136/75 08/20/22 07:00 Pulse Ox 93 08/20/22 07:00 O2 Del Method Room Air 08/20/22 07:00 O2 Flow Rate 2 08/18/22 19:43 BMI result Body Mass Index 26.3 Const: Other: Constitutional : Awake, interactive, not in distress Neck : Normal inspection, Supple Cardiovascular : RRR, no JVP, no lower extremity edema, tachycardia Respiratory : fair bilateral air entry, no crackles, wheezes or rhonchi Gastrointestinal: soft, lax, Normal bowel sounds, mild generalized tenderness Skin : Warm, Dry Neurological : Alert & oriented x3, No focal deficit Objective Data Active Medications Acetaminophen (Acetaminophen 325 Mg Tablet) 975 mg PO Q6H PRN PRN Reason: mild pain or fever Last Admin: 08/19/22 12:15 Dose: 975 mg Documented By: YAW Bictegravir/Emtricitabine/Tenofovir (Bictegrav/Emtricit/Tenofov Ala Tablet) 1 tab PO DAILY [facility] Last Admin: 08/20/22 08:00 Dose: 1 tab Documented By: YAW Cyanocobalamin (Cyanocobalamin (Vitamin B-12) 1,000 Mcg Tablet) 1,000 mcg PO DAILY [facility] Last Admin: 08/20/22 08:00 Dose: 1,000 mcg Documented By: YAW Docusate Sodium (Docusate Sodium 100 Mg Capsule) 200 mg PO BID [facility] Last Admin: 08/20/22 08:00 Dose: 200 mg Documented By: YAW Famotidine (Famotidine 20 Mg Tablet) 20 mg PO DAILY [facility] Last Admin: 08/20/22 08:00 Dose: 20 mg Documented By: YAW Fentanyl (Fentanyl Citrate/Pf 100 Mcg/2 Ml Vial) 50 mcg IVPUSH Q5M PRN; Protocol PRN Reason: Pain, Severe (Pain Scale 7-10) Ferrous Sulfate (Ferrous Sulfate 324 Mg Tablet.Dr) 324 mg PO BID [facility] Last Admin: 08/20/22 08:00 Dose: 324 mg Documented By: YAW Hydromorphone HCl (Hydromorphone Hcl 0.5 Mg/0.5 Ml Syringe) 0.25 mg IVPUSH Q2H PRN; Protocol PRN Reason: Pain, Moderate(Pain Scale 4-6) Hydromorphone HCl (Hydromorphone Hcl 0.5 Mg/0.5 Ml Syringe) 0.5 mg IVPUSH Q5M PRN; Protocol PRN Reason: Pain, Severe (Pain Scale 7-10) Piperacillin Sod/Tazobactam (Sod 3.375 gm/ Sodium Chloride) 50 mls @ 100 mls/hr IV Q6H [facility] Last Infusion: 08/20/22 06:44 Dose: 0 mls/hr Documented By: CARLOS Lactated Ringer's (Lr) 1,000 mls @ 50 mls/hr IVCONT .Q20H [facility] Last Admin: 08/20/22 08:01 Dose: 50 mls/hr Documented By: YAW Patient Own ( Norelgestromin-Ethin .Estradiol [Xulane] 150-35 Mcg/24 Hr Patch W 1 patch TOPICAL We@2300 [facility] Last Admin: 08/18/22 23:34 Dose: 1 patch Documented By: FRIDA Ondansetron HCl (Ondansetron Hcl 4 Mg/2 Ml Vial) 4 mg IVPUSH Q6H PRN PRN Reason: Nausea and Vomiting Oxycodone HCl (Oxycodone Hcl Immed Release 5 Mg Tablet) 5 mg PO Q4H PRN PRN Reason: Pain, Moderate(Pain Scale 4-6) Last Admin: 08/18/22 18:09 Dose: 5 mg Documented By: NAVEED Trimethoprim/Sulfamethoxazole (Sulfamethox/Trimeth 400/80 Tablet) 1 tab PO DAILY [facility] Last Admin: 08/20/22 08:00 Dose: 1 tab Documented By: YAW Labs 08/20/22 05:44 08/20/22 05:44 Labs: Laboratory Results - last 24 hr 08/20/22 08/20/22 05:44 05:44 MCV 74.2 L MCH 22.8 L MCHC 30.7 L RDW 24.0 H Plt Count 305 MPV 8.9 L Immature Gran % (Auto) 0.4 Neut % (Auto) 74.7 H Lymph % (Auto) 18.3 L [place] % (Auto) 6.2 Eos % (Auto) 0.2 Baso % (Auto) 0.2 Lymph # (Auto) 0.9 L [place] # (Auto) 0.3 Eos # (Auto) 0.0 Baso # (Auto) 0.0 Abs Immat Gran (auto) 0.02 Absolute Neuts (auto) 3.6 Absolute Nucleated RBC 0.000 Nucleated RBC % (auto) 0.0 Anion Gap 13 Estim Creat Clear Calc 88.8 Estimated GFR > 60 Random Glucose 92 Calcium 8.6 Total Bilirubin 0.4 AST 21 ALT 9 Alkaline Phosphatase 47 Total Protein 6.8 Albumin 3.1 L Microbiology Microbiology Results: Microbiology 08/18/22 14:02 Gram Stain - Final Gallbladder Fluid Routine Culture - Final No growth after 2 days 08/18/22 00:09 Blood Culture - Preliminary Blood - Venous No growth after 48 hours. 08/18/22 00:09 Blood Culture - Preliminary Blood - Venous No growth after 48 hours. Assessment and Plan (1) HIV (human immunodeficiency virus infection): Status: Acute (2) Acute cholecystitis: Status: Acute Plan hospital d#3 42yo F with HIV/AIDS on HAART without meaningful immunological recovery [CD4 88 in April 2021, not checked since] and thus still on PJP prophylaxis admitted to the general surgery service for cholecystectomy for acute calculous cholecystitis hospitalist service consulted due to HIV/AIDS POD#1 lap luisito 08/18/22, found to have gangrenous, very thick/enlarged gallbladder # acute cholecystitis POD 3 on pip-familia d#3 Negative gallbladder fluid cultures at 48hrs. Due to her immunodeficiency, she is at a higher risk of postoperative infective complications. Postop management per Surgery Team. # HIV/AIDS Continue Biktarvy for ART and Bactrim for PJP prophylaxis.? CD4 + viral load Pending and pt will follow up at [facility]. # BRETT due to menorrhagia Transfused 1u pRBCs preop with appropriate response in H+H. Continue iron replacement + contraceptive patch. # VTE ppx: SCDs Thank you for this consultation. We will continue to follow along with you. Time Spent With Patient Time: Total time managing care of this patient today ____ minutes. Quality Stroke Does the patient have a stroke diagnosis?: No VTE Prior VTE?: No VTE Risk Level:: Surgical - moderate VTE Device Contraindication: N/A - Device Ordered VTE Drug Contraindication: N/A - Med Ordered
[2022-08-20] MEDS: Potassium Chloride Packet 20 MEQ PACKET 40 MEQ PO (10:15)
[2022-08-20] MEDS: Acetaminophen 325 MG TABLET 975 MG PO (14:34)
[2022-08-20] MEDS: guaiFENesin LA 600 MG TAB.ER.12H PO ×2 (14:34→20:18)
[2022-08-20 14:58] LABS: HIV RNA PCR Qn Copies 115000 copies/mL (NOT DETECTED); HIV RNA PCR Qn Log Copies 5.06 (NOT DETECTED)
[2022-08-20 15:39] LABS: Absolute CD3 Count 290 cells/uL (840-3060); Absolute CD4 Count <20 cells/uL (490-1740); Absolute CD8 Count 249 cells/uL (180-1170); Absolute Lymphocytes 674 cells/uL (850-3900); CD4 CD8 Ratio 0.05 (0.86-5.00); Percent CD3 Cells 43 % (57-85); Percent CD4 Cells 2 % (30-61); Percent CD8 Cells 37 % (12-42)
[2022-08-20 16:07] LABS: Appearance Urine Clear; Color Urine Yellow; Glucose Urine UA Negative (Negative); Leukocyte Esterase Urine Negative (Negative); Nitrite Urine Negative (Negative); Urine Blood Negative (Negative); Urine Ketones Negative (Negative); Urine Protein Negative (Neg-Trace)
--- NOTE | 2022-08-20 16:08 | MHC.CM.PN ---
PT REPORTS SHE LIVES WITH HER MOTHER, CHILDREN AND S/O SHE IS INDEPENDENT WITH CARE, USES NO DME AND HAS NO SERVICES PT DOES NOT HAVE A HCP, A BLANK DOCUMENT AND INFORMATION PROVIDED SHE IS AWARE CM CAN ASSIST IF SHE WOULD LIKE TO COMPLETE ONE DURING ADMISSION PCP: ABHI LOCKWOOD DCP: HOME NO SERVICES VIA SELF-TRANSPORT
--- NOTE | 2022-08-20 22:56 | W.PM.IDCN ---
History of Present Illness Data of Consult Service Date: 08/20/22 Requesting physician: Carter Steel Primary Care Provider: Vera Leong DO HPI Reason for consult: necrotic gallbladder,AIDS, with appointment clerk,Milana She presents with RUQ pain for couple days. She has no fever or chills now. She had cholecystectomy with necrotic gallbladder,pathology pending. She sees Dr Leong PCP and Dr Lanza, HIV at [facility]. She uses [facility] and feels not taking HIV medication since she takes too many pills like iron pills for anemia. I called them and [facility] pharmacy also and she last picked up Biktarvy on 06/22 but didnt take it she says Her CD4 count is undetectable and viral load over 100,000. Review of Systems Review of Systems: Yes all other systems are reviewed and are negative [facility] Past Medical History Medical History (Updated 08/20/22 @ 23:06 by Thao Villalba MD) AIDS (acquired immune deficiency syndrome) Anemia Centers for Disease Control and Prevention category C3 HIV infection ABILIO III (cervical intraepithelial neoplasia grade III) with severe dysplasia Fever Family History Family history: reviewed and not pertinent Surgical History Surgical History Hx of section Social History Social History Household Members: Family Housing: Apartment Do you presently have visiting nurse or other home services: No Alcohol intake: never Patient Tobacco Use Status: Never used Tobacco Tobacco use type: Cigarette Smoked in Last 30 Days: No e-Cigarette/Vaping Use: Never Used Second Hand Smoke Exposure: No Use of substances other than those prescribed or required for medical reasons: No Currently Displaying Signs/Symptoms of Drug Intoxication Withdrawal: No Any prior treatment program specific to substance use: No Have you been hit, kicked, punched, or otherwise hurt by someone within the past year? If so, by whom?: No Do you feel safe in your current relationship?: Yes Is there a partner from a previous relationship who is making you feel unsafe now?: No Are you made to feel afraid or neglected: No Are you DNR?: No Advance Directives: No Advance Directives Information Provided: No Do you have thoughts of harming others: None Do you have a plan to hurt others: No Plan Recently lost weight without trying: No Eating poorly because of decreased appetite: No Nutrition Risks: No Nutritional Risk Patient : No : No Poor oral hygiene: No service: No Current occupational status: unemployed and disabled Meds Allergies Allergy/AdvReac Type Severity Reaction Status Date / Time No Known Allergies Allergy Verified 08/17/22 15:57 [No Known Allergies*] Active Medications: Current Medications Acetaminophen (Acetaminophen 325 Mg Tablet) 975 mg PO Q6H PRN PRN Reason: mild pain or fever Last Admin: 08/20/22 14:34 Dose: 975 mg Bictegravir/Emtricitabine/Tenofovir (Bictegrav/Emtricit/Tenofov Ala Tablet) 1 tab PO DAILY [facility] Last Admin: 08/20/22 08:00 Dose: 1 tab Cyanocobalamin (Cyanocobalamin (Vitamin B-12) 1,000 Mcg Tablet) 1,000 mcg PO DAILY [facility] Last Admin: 08/20/22 08:00 Dose: 1,000 mcg Docusate Sodium (Docusate Sodium 100 Mg Capsule) 200 mg PO BID [facility] Last Admin: 08/20/22 20:18 Dose: 200 mg Famotidine (Famotidine 20 Mg Tablet) 20 mg PO DAILY [facility] Last Admin: 08/20/22 08:00 Dose: 20 mg Fentanyl (Fentanyl Citrate/Pf 100 Mcg/2 Ml Vial) 50 mcg IVPUSH Q5M PRN; Protocol PRN Reason: Pain, Severe (Pain Scale 7-10) Ferrous Sulfate (Ferrous Sulfate 324 Mg Tablet.Dr) 324 mg PO BID [facility] Last Admin: 08/20/22 20:18 Dose: 324 mg Guaifenesin (Guaifenesin La 600 Mg Tab.Er.12h) 600 mg PO BID [facility] Last Admin: 08/20/22 20:18 Dose: 600 mg Hydromorphone HCl (Hydromorphone Hcl 0.5 Mg/0.5 Ml Syringe) 0.25 mg IVPUSH Q2H PRN; Protocol PRN Reason: Pain, Moderate(Pain Scale 4-6) Hydromorphone HCl (Hydromorphone Hcl 0.5 Mg/0.5 Ml Syringe) 0.5 mg IVPUSH Q5M PRN; Protocol PRN Reason: Pain, Severe (Pain Scale 7-10) Piperacillin Sod/Tazobactam (Sod 3.375 gm/ Sodium Chloride) 50 mls @ 100 mls/hr IV Q6H [facility] Last Infusion: 08/20/22 18:35 Dose: Infused Lactated Ringer's (Lr) 1,000 mls @ 50 mls/hr IVCONT .Q20H [facility] Last Admin: 08/20/22 20:17 Dose: 50 mls/hr Patient Own ( Norelgestromin-Ethin .Estradiol [Xulane] 150-35 Mcg/24 Hr Patch W 1 patch TOPICAL We@2300 [facility] Last Admin: 08/18/22 23:34 Dose: 1 patch Ondansetron HCl (Ondansetron Hcl 4 Mg/2 Ml Vial) 4 mg IVPUSH Q6H PRN PRN Reason: Nausea and Vomiting Oxycodone HCl (Oxycodone Hcl Immed Release 5 Mg Tablet) 5 mg PO Q4H PRN PRN Reason: Pain, Moderate(Pain Scale 4-6) Last Admin: 08/18/22 18:09 Dose: 5 mg Trimethoprim/Sulfamethoxazole (Sulfamethox/Trimeth 400/80 Tablet) 1 tab PO DAILY [facility] Last Admin: 08/20/22 08:00 Dose: 1 tab Home Medications Medication Instructions Recorded Confirmed Last Taken Type bictegravir 50 mg-emtricitabine 1 tab PO DAILY 02/23/21 08/18/22 08/11/22 History 200 mg-tenofovir alafenam 25 mg tablet (Biktarvy) famotidine 1 tab PO DAILY 10/13/21 08/18/22 08/11/22 History sulfamethoxazole 400 1 tab PO DAILY 10/13/21 08/18/22 08/11/22 History mg-trimethoprim 80 mg tablet norelgestromin 150 mcg-e.estradiol 1 patch topical QWEEK 08/18/22 08/18/22 08/11/22 History 35 mcg/24 hr weekly transderm patch (Xulane) Physical Exam Vital Signs: Vital Signs: Last Vital Signs Temp 97.6 F 08/20/22 19:00 Pulse 90 08/20/22 19:57 Resp 18 08/20/22 19:00 BP 116/69 08/20/22 19:00 Pulse Ox 95 08/20/22 19:57 O2 Del Method Room Air 08/20/22 19:00 O2 Flow Rate 2 08/18/22 19:43 BMI result Body Mass Index 26.3 Const: General: cooperative HEENT: Head: Yes normal to inspection Face and sinus: Yes normal facial exam Mouth: Normal oral and palatal mucosa present Teeth and gingiva: dentition normal Eyes: General: appearance normal, both eyes and all related structures Pupils: Equal, round and reactive pupils present Resp: Effort & Inspection: normal respiratory effort Cardio: Rate: regular rate Rhythm: regular rhythm GI: Other: drain in gallbladder ,serosanguinous Palpation (GI): Soft to palpation and nontender : General: Yes no CVA tenderness Back/Spine/Pelvis: Back: no CVA tenderness Skin: General skin exam: no rashes or lesions noted Neuro: General: moves all extremities Cranial nerves: Yes Equal, round and reactive pupils present Extrem: General: Yes normal to inspection Psych: Appearance: grossly normal Results Labs 08/20/22 05:44 08/20/22 05:44 Labs: Short CBC 08/20/22 Range/Units 05:44 WBC 4.8 (4.8-10.8) X10*3/uL Hgb 8.2 L (12.0-16.0) g/dl Hct 26.7 L (37.0-47.0) % Plt Count 305 (160-400) X10*3/uL BMP 08/20/22 05:44 Sodium 139 Potassium 3.1 L Chloride 108 Carbon Dioxide 21 L BUN 3 L Creatinine 0.66 Calcium 8.6 Liver Function 08/20/22 Range/Units 05:44 Total Bilirubin 0.4 (0.0-1.0) mg/dL AST 21 (5-31) U/L ALT 9 (0-31) U/L Alkaline Phosphatase 47 (39-117) U/L Albumin 3.1 L (3.5-5.0) g/dL Urine 08/20/22 Range/Units 15:54 Urine Color Yellow Urine Appearance Clear Urine pH 7.0 (5.0-9.0) Ur Specific [place] 1.010 (1.005-1.025) Urine Protein Negative (Neg-Trace) mg/dL Urine Glucose (UA) Negative (Negative) mg/dL Microbiology Microbiology Results: Microbiology 08/18/22 14:02 Gallbladder Fluid Gram Stain - Final 08/18/22 14:02 Gallbladder Fluid Routine Culture - Final No growth after 2 days 08/18/22 00:09 Blood - Venous Blood Culture - Preliminary No growth after 48 hours. 08/18/22 00:09 Blood - Venous Blood Culture - Preliminary No growth after 48 hours. Assessment and Plan (1) S/P laparoscopic cholecystectomy: Status: Acute (2) AIDS (acquired immune deficiency syndrome): Status: Acute (3) Anemia: Status: Chronic (4) Acute cholecystitis: Status: Acute (5) Fever: Status: Acute She has fever likely due to gallbladder infection as well as untreated AIDS which causes fever. I dont see any evidence of opportunistic infection,but at risk for PJP pneumonia and toxoplasmosis. She has stopped taking HIV medication and this can lead to OIs and Plan Continue Zosyn for now until drain out and then po Augmentin for a week treat any possible secondary peritonitis. Agree with Biktarvy and Bactrim per her HIV provider. Time Spent With Patient Time: Total time managing care of this patient today ____ minutes.
[2022-08-21] MEDS: Piperacillin Sodium/Tazobactam 3.375 GM in 0.9 % Sodium Chloride 50 ML IV ×2 (00:05→05:57)
[2022-08-21 03:15] VITALS: BP 132/76; PULSE 88; RESP 18; TEMP 36.9; O2SAT 96
[2022-08-21 07:18] VITALS: BP 134/73; PULSE 86; RESP 18; TEMP 36.7; O2SAT 95
[2022-08-21 07:46] LABS: Hematocrit 27.8 % (37.0-47.0); Hemoglobin 8.4 g/dl (12.0-16.0); Mean Corpuscular HGB Conc 30.2 g/dl (31.0-35.0); Mean Corpuscular Hemoglobin 22.6 pg (27.0-33.0); Mean Corpuscular Volume 74.9 fL (80.0-98.0); Mean Platelet Volume 8.6 fL (9.4-12.3); Platelet Count 316 X10*3/uL (160-400); Red Blood Count 3.71 X10*6/uL (4.20-5.50); Red Cell Distribution Width 24.3 % (11.0-16.0); White Blood Count 4.8 X10*3/uL (4.8-10.8)
[2022-08-21 08:09] LABS: Anion Gap 13 (12-20); Blood Urea Nitrogen 4 mg/dL (9-16); Calcium 8.8 mg/dL (8.4-10.2); Carbon Dioxide 22 mmol/L (22-29); Chloride 108 mmol/L (96-108); Creatinine Clr Calc Pharmacy 93.1; Estimated Glomerular Filt Rate > 60; Glucose Random 88 mg/dL (60-115); Potassium 3.3 mmol/L (3.3-5.1); Sodium 140 mmol/L (135-145)
[2022-08-21 08:12] LABS: Alanine Aminotransferase 9 U/L (0-31); Albumin Level 3.1 g/dL (3.5-5.0); Alkaline Phosphatase 56 U/L (39-117); Aspartate Amino Transferase 16 U/L (5-31); Bilirubin Direct 0.1 mg/dL (0.0-0.5); Bilirubin Total 0.3 mg/dL (0.0-1.0); Total Protein 6.9 g/dL (6.5-8.0)
[2022-08-21] MEDS: Cyanocobalamin (Vitamin B-12) 1,000 MCG TABLET 1000 MCG PO (08:26)
[2022-08-21] MEDS: Ferrous Sulfate 324 MG TABLET.DR PO (08:27)
[2022-08-21] MEDS: Docusate Sodium 100 MG CAPSULE 200 MG PO (08:27)
[2022-08-21] MEDS: Famotidine 20 MG TABLET PO (08:27)
[2022-08-21] MEDS: Sulfamethox/Trimeth 400/80 TABLET 1 TAB PO (08:27)
[2022-08-21] MEDS: guaiFENesin LA 600 MG TAB.ER.12H PO (08:27)
[2022-08-21] MEDS: Bictegrav/Emtricit/Tenofov Ala TABLET 1 TAB PO (08:28)
--- NOTE | 2022-08-21 10:03 | PM.PNGS ---
Subjective Subjective Date of Service: 08/21/22 Patient reports: no new complaints Interval history: patient feels improved with decreased abdominal pain, tolerating regular diet without nausea or vomiting. SHERIF with mainly serous fluid. Physical Exam Vital Signs: Vital Signs: Last Vital Signs Temp 98.1 F 08/21/22 07:18 Pulse 86 08/21/22 07:18 Resp 18 08/21/22 07:18 BP 134/73 08/21/22 07:18 Pulse Ox 95 08/21/22 07:18 O2 Del Method Room Air 08/21/22 07:18 O2 Flow Rate 2 08/18/22 19:43 BMI result Body Mass Index 26.3 Const: General: comfortable and no acute distress Nutritional Appearance: well nourished Orientation/consciousness: patient oriented x3 Limitations: no limitations Eyes: Sclerae: sclerae normal GI: Other: SHERIF intact with serous fluid. Trocar incisions are clean, dry and intact. Abdomen is otherwise soft and nondistended. Skin: Other: Warm, dry, no rash, normal color Neuro: General: patient oriented x3 Extrem: Other: no pedal edema Objective Data Active Medications Acetaminophen (Acetaminophen 325 Mg Tablet) 975 mg PO Q6H PRN PRN Reason: mild pain or fever Last Admin: 08/20/22 14:34 Dose: 975 mg Documented By: YAW Bictegravir/Emtricitabine/Tenofovir (Bictegrav/Emtricit/Tenofov Ala Tablet) 1 tab PO DAILY [facility] Last Admin: 08/21/22 08:28 Dose: 1 tab Documented By: JUANA Cyanocobalamin (Cyanocobalamin (Vitamin B-12) 1,000 Mcg Tablet) 1,000 mcg PO DAILY [facility] Last Admin: 08/21/22 08:26 Dose: 1,000 mcg Documented By: JUANA Docusate Sodium (Docusate Sodium 100 Mg Capsule) 200 mg PO BID [facility] Last Admin: 08/21/22 08:27 Dose: 200 mg Documented By: JUANA Famotidine (Famotidine 20 Mg Tablet) 20 mg PO DAILY [facility] Last Admin: 08/21/22 08:27 Dose: 20 mg Documented By: JUANA Fentanyl (Fentanyl Citrate/Pf 100 Mcg/2 Ml Vial) 50 mcg IVPUSH Q5M PRN; Protocol PRN Reason: Pain, Severe (Pain Scale 7-10) Ferrous Sulfate (Ferrous Sulfate 324 Mg Tablet.Dr) 324 mg PO BID [facility] Last Admin: 08/21/22 08:27 Dose: 324 mg Documented By: JUANA Guaifenesin (Guaifenesin La 600 Mg Tab.Er.12h) 600 mg PO BID [facility] Last Admin: 08/21/22 08:27 Dose: 600 mg Documented By: JUANA Hydromorphone HCl (Hydromorphone Hcl 0.5 Mg/0.5 Ml Syringe) 0.25 mg IVPUSH Q2H PRN; Protocol PRN Reason: Pain, Moderate(Pain Scale 4-6) Hydromorphone HCl (Hydromorphone Hcl 0.5 Mg/0.5 Ml Syringe) 0.5 mg IVPUSH Q5M PRN; Protocol PRN Reason: Pain, Severe (Pain Scale 7-10) Piperacillin Sod/Tazobactam (Sod 3.375 gm/ Sodium Chloride) 50 mls @ 100 mls/hr IV Q6H [facility] Last Infusion: 08/21/22 06:28 Dose: 0 mls/hr Documented By: ALFONSO Lactated Ringer's (Lr) 1,000 mls @ 50 mls/hr IVCONT .Q20H [facility] Last Infusion: 08/21/22 08:50 Dose: 0 mls/hr Documented By: JUANA Patient Own ( Norelgestromin-Ethin .Estradiol [Xulane] 150-35 Mcg/24 Hr Patch W 1 patch TOPICAL We@2300 [facility] Last Admin: 08/18/22 23:34 Dose: 1 patch Documented By: FRIDA Ondansetron HCl (Ondansetron Hcl 4 Mg/2 Ml Vial) 4 mg IVPUSH Q6H PRN PRN Reason: Nausea and Vomiting Oxycodone HCl (Oxycodone Hcl Immed Release 5 Mg Tablet) 5 mg PO Q4H PRN PRN Reason: Pain, Moderate(Pain Scale 4-6) Last Admin: 08/18/22 18:09 Dose: 5 mg Documented By: NAVEED Trimethoprim/Sulfamethoxazole (Sulfamethox/Trimeth 400/80 Tablet) 1 tab PO DAILY [facility] Last Admin: 08/21/22 08:27 Dose: 1 tab Documented By: HO.YOUB Labs 08/21/22 06:36 08/21/22 06:36 Labs: Laboratory Results - last 24 hr 08/18/22 08/18/22 08/20/22 10:42 10:42 15:54 MCV MCH MCHC RDW Plt Count MPV Absolute Nucleated RBC Nucleated RBC % (auto) Anion Gap Estim Creat Clear Calc Estimated GFR Random Glucose Calcium Total Bilirubin Direct Bilirubin AST ALT Alkaline Phosphatase Total Protein Albumin Urine Color Yellow Urine Appearance Clear Urine pH 7.0 Ur Specific [place] 1.010 Urine Protein Negative Urine Glucose (UA) Negative Urine Ketones Negative Urine Blood Negative Urine Nitrite Negative Ur Leukocyte Esterase Negative Total Lymphocytes 674 L % CD3 Cells 43 L Absolute CD3 Count 290 L % CD4 Cells 2 L Absolute CD4 Count <20 L CD4/CD8 Ratio 0.05 L % CD8 Cells 37 Absolute CD8 Count 249 HIV-1 RNA copies/mL 137504 H HIV-1 RNA logcopies/mL 5.06 H 08/21/22 08/21/22 08/21/22 06:36 06:36 06:36 MCV 74.9 L MCH 22.6 L MCHC 30.2 L RDW 24.3 H Plt Count 316 MPV 8.6 L Absolute Nucleated RBC 0.000 Nucleated RBC % (auto) 0.0 Anion Gap 13 Estim Creat Clear Calc 93.1 Estimated GFR > 60 Random Glucose 88 Calcium 8.8 Total Bilirubin 0.3 Direct Bilirubin 0.1 AST 16 ALT 9 Alkaline Phosphatase 56 Total Protein 6.9 Albumin 3.1 L Urine Color Urine Appearance Urine pH Ur Specific [place] Urine Protein Urine Glucose (UA) Urine Ketones Urine Blood Urine Nitrite Ur Leukocyte Esterase Total Lymphocytes % CD3 Cells Absolute CD3 Count % CD4 Cells Absolute CD4 Count CD4/CD8 Ratio % CD8 Cells Absolute CD8 Count HIV-1 RNA copies/mL HIV-1 RNA logcopies/mL Microbiology Microbiology Results: Microbiology 08/18/22 14:02 Gram Stain - Final Gallbladder Fluid Routine Culture - Final No growth after 2 days Procedures Date of Service Date of Service: 08/21/22 Progress Note: A&P Assessment and plan (1) S/P laparoscopic cholecystectomy: Status: Acute (2) Anemia: Status: Chronic (3) Acute cholecystitis: Status: Acute Plan 42-year-old female patient status post laparoscopic cholecystectomy found to have gangrenous cholecystitis. Patient is doing very well this morning feels ready for discharge to home. She will be discharged with the SHERIF drain in place and was instructed on drain care. She will return later this week for drain removal with Dr. tSeel. She was instructed to call for fever, chills, nausea, vomiting, or increased abdominal pain. Expressed understanding and agrees with the plan. Time Spent With Patient Time: Total time managing care of this patient today ____ minutes. Quality Stroke Does the patient have a stroke diagnosis?: No VTE Prior VTE?: No VTE Risk Level:: Surgical - moderate VTE Device Contraindication: N/A - Device Ordered VTE Drug Contraindication: N/A - Med Ordered
--- NOTE | 2022-08-21 10:28 | HO.PM.IMPN ---
Subjective Subjective Date of Service: 08/21/22 Interval History: Seen and evaluated this morning Feels better overall and improved breathing No fever overnight pain fairly controlled no other overnight events Review of Systems Review of Systems: Yes all other systems are reviewed and are negative Physical Exam Vital Signs: Vital Signs: Last Vital Signs Temp 98.1 F 08/21/22 07:18 Pulse 86 08/21/22 07:18 Resp 18 08/21/22 07:18 BP 134/73 08/21/22 07:18 Pulse Ox 95 08/21/22 07:18 O2 Del Method Room Air 08/21/22 07:18 O2 Flow Rate 2 08/18/22 19:43 BMI result Body Mass Index 26.3 Const: Other: Constitutional : Awake, interactive, not in distress Neck : Normal inspection, Supple Cardiovascular : RRR, no JVP, no lower extremity edema, tachycardia Respiratory : improved bilateral air entry, no crackles, wheezes or rhonchi Gastrointestinal: soft, lax, Normal bowel sounds, mild generalized tenderness , surgical wounds covered with dressing, drain in place with serous drainage Skin : Warm, Dry Neurological : Alert & oriented x3, No focal deficit Objective Data Active Medications Acetaminophen (Acetaminophen 325 Mg Tablet) 975 mg PO Q6H PRN PRN Reason: mild pain or fever Last Admin: 08/20/22 14:34 Dose: 975 mg Documented By: YAW Bictegravir/Emtricitabine/Tenofovir (Bictegrav/Emtricit/Tenofov Ala Tablet) 1 tab PO DAILY [facility] Last Admin: 08/21/22 08:28 Dose: 1 tab Documented By: JUANA Cyanocobalamin (Cyanocobalamin (Vitamin B-12) 1,000 Mcg Tablet) 1,000 mcg PO DAILY [facility] Last Admin: 08/21/22 08:26 Dose: 1,000 mcg Documented By: JUANA Docusate Sodium (Docusate Sodium 100 Mg Capsule) 200 mg PO BID [facility] Last Admin: 08/21/22 08:27 Dose: 200 mg Documented By: JUANA Famotidine (Famotidine 20 Mg Tablet) 20 mg PO DAILY [facility] Last Admin: 08/21/22 08:27 Dose: 20 mg Documented By: JUANA Fentanyl (Fentanyl Citrate/Pf 100 Mcg/2 Ml Vial) 50 mcg IVPUSH Q5M PRN; Protocol PRN Reason: Pain, Severe (Pain Scale 7-10) Ferrous Sulfate (Ferrous Sulfate 324 Mg Tablet.Dr) 324 mg PO BID [facility] Last Admin: 08/21/22 08:27 Dose: 324 mg Documented By: JUANA Guaifenesin (Guaifenesin La 600 Mg Tab.Er.12h) 600 mg PO BID [facility] Last Admin: 08/21/22 08:27 Dose: 600 mg Documented By: JUANA Hydromorphone HCl (Hydromorphone Hcl 0.5 Mg/0.5 Ml Syringe) 0.25 mg IVPUSH Q2H PRN; Protocol PRN Reason: Pain, Moderate(Pain Scale 4-6) Hydromorphone HCl (Hydromorphone Hcl 0.5 Mg/0.5 Ml Syringe) 0.5 mg IVPUSH Q5M PRN; Protocol PRN Reason: Pain, Severe (Pain Scale 7-10) Piperacillin Sod/Tazobactam (Sod 3.375 gm/ Sodium Chloride) 50 mls @ 100 mls/hr IV Q6H [facility] Last Infusion: 08/21/22 06:28 Dose: 0 mls/hr Documented By: ALFONSO Lactated Ringer's (Lr) 1,000 mls @ 50 mls/hr IVCONT .Q20H [facility] Last Infusion: 08/21/22 08:50 Dose: 0 mls/hr Documented By: JUANA Patient Own ( Norelgestromin-Ethin .Estradiol [Xulane] 150-35 Mcg/24 Hr Patch W 1 patch TOPICAL We@2300 [facility] Last Admin: 08/18/22 23:34 Dose: 1 patch Documented By: FRIDA Ondansetron HCl (Ondansetron Hcl 4 Mg/2 Ml Vial) 4 mg IVPUSH Q6H PRN PRN Reason: Nausea and Vomiting Oxycodone HCl (Oxycodone Hcl Immed Release 5 Mg Tablet) 5 mg PO Q4H PRN PRN Reason: Pain, Moderate(Pain Scale 4-6) Last Admin: 08/18/22 18:09 Dose: 5 mg Documented By: NAVEED Trimethoprim/Sulfamethoxazole (Sulfamethox/Trimeth 400/80 Tablet) 1 tab PO DAILY [facility] Last Admin: 08/21/22 08:27 Dose: 1 tab Documented By: JUANA Labs 08/21/22 06:36 08/21/22 06:36 Labs: Laboratory Results - last 24 hr 08/18/22 08/18/22 08/20/22 10:42 10:42 15:54 MCV MCH MCHC RDW Plt Count MPV Absolute Nucleated RBC Nucleated RBC % (auto) Anion Gap Estim Creat Clear Calc Estimated GFR Random Glucose Calcium Total Bilirubin Direct Bilirubin AST ALT Alkaline Phosphatase Total Protein Albumin Urine Color Yellow Urine Appearance Clear Urine pH 7.0 Ur Specific [place] 1.010 Urine Protein Negative Urine Glucose (UA) Negative Urine Ketones Negative Urine Blood Negative Urine Nitrite Negative Ur Leukocyte Esterase Negative Total Lymphocytes 674 L % CD3 Cells 43 L Absolute CD3 Count 290 L % CD4 Cells 2 L Absolute CD4 Count <20 L CD4/CD8 Ratio 0.05 L % CD8 Cells 37 Absolute CD8 Count 249 HIV-1 RNA copies/mL 977594 H HIV-1 RNA logcopies/mL 5.06 H 08/21/22 08/21/22 08/21/22 06:36 06:36 06:36 MCV 74.9 L MCH 22.6 L MCHC 30.2 L RDW 24.3 H Plt Count 316 MPV 8.6 L Absolute Nucleated RBC 0.000 Nucleated RBC % (auto) 0.0 Anion Gap 13 Estim Creat Clear Calc 93.1 Estimated GFR > 60 Random Glucose 88 Calcium 8.8 Total Bilirubin 0.3 Direct Bilirubin 0.1 AST 16 ALT 9 Alkaline Phosphatase 56 Total Protein 6.9 Albumin 3.1 L Urine Color Urine Appearance Urine pH Ur Specific [place] Urine Protein Urine Glucose (UA) Urine Ketones Urine Blood Urine Nitrite Ur Leukocyte Esterase Total Lymphocytes % CD3 Cells Absolute CD3 Count % CD4 Cells Absolute CD4 Count CD4/CD8 Ratio % CD8 Cells Absolute CD8 Count HIV-1 RNA copies/mL HIV-1 RNA logcopies/mL Microbiology Microbiology Results: Microbiology 08/18/22 14:02 Gram Stain - Final Gallbladder Fluid Routine Culture - Final No growth after 2 days Assessment and Plan (1) S/P laparoscopic cholecystectomy: Status: Acute (2) HIV (human immunodeficiency virus infection): Status: Acute (3) AIDS (acquired immune deficiency syndrome): Status: Acute (4) Acute cholecystitis: Status: Acute (5) Acute atelectasis: Status: Acute [facility] 42yo F with HIV/AIDS on HAART without meaningful immunological recovery [CD4 88 in April 2021, not checked since] and thus still on PJP prophylaxis admitted to the general surgery service for cholecystectomy for acute calculous cholecystitis. hospitalist service consulted due to HIV/AIDS. lap luisito 08/18/22, found to have gangrenous, very thick/enlarged gallbladder # acute cholecystitis POD 4 on pip-familia d#4 Negative gallbladder fluid cultures at 48hrs. ID rec 1 more week of oral Augmentin on discharge Postop management per Surgery Team. # HIV/AIDS High RNA copised of 115k, CD4 count of <20 Continue Biktarvy for ART and Bactrim for PJP prophylaxis at time of discharge She has the HIV medications waiting in pharmacy she will follow up at [facility]. # Acute atelactasis post Op, noted on CXR right side likely reason for fever post op resolved with CPT and nebulizers continue CPT at home # BRETT due to menorrhagia Transfused 1u pRBCs preop with appropriate response in H+H. Continue iron replacement + contraceptive patch. # VTE ppx: SCDs Thank you for this consultation. We will continue to follow along with you as needed Time Spent With Patient Time: Total time managing care of this patient today ____ minutes. Quality Stroke Does the patient have a stroke diagnosis?: No VTE Prior VTE?: No VTE Risk Level:: Surgical - moderate VTE Device Contraindication: N/A - Device Ordered VTE Drug Contraindication: N/A - Med Ordered
--- NOTE | 2022-08-21 10:55 | MHC.CM.PN ---
PT WILL DC HOME TODAY WITH NO SERVICES VIA SELF-TRANSPORT
[2022-08-21 11:19] VITALS: BP 130/68; PULSE 68; RESP 18; TEMP 36.6; O2SAT 95
--- NOTE | 2022-08-21 15:12 | PM.DS ---
DS: Providers Provider Date of Service: 08/21/22 Date of admission: 08/18/22 00:05 Primary care physician: Vera Leong DO Consults: 08/17/22 23:57 Consult to General Surgery Stat Consulting Provider: [facility] [place] [facility] Reason for consultation: Cholecystitis Has provider been notified: Yes 08/18/22 00:07 Consult to Hospitalist Routine Comment: Consulting Provider: Hospitalist Reason For Exam: HIV & medical eval 08/20/22 14:29 Consult to Infectious Diseases Routine Consulting Provider: [facility] [place] Infectious Disease Reason for consultation: AIDS, gangrenous GB, fever for eval and rec. DS: Diagnosis Discharge Diagnosis (1) S/P laparoscopic cholecystectomy: Status: Acute (2) HIV (human immunodeficiency virus infection): Status: Acute (3) AIDS (acquired immune deficiency syndrome): Status: Acute (4) Acute cholecystitis: Status: Acute (5) Acute atelectasis: Status: Acute DS: Summary Hospital Course Hospital Course: See H&P for full details. Briefly, this 42y woman with HIV & depressed CD4 count presented with abdominal pain & CT demonstrating 15mm thick GB wall. Following discussion via boiler washer, it was reecommended she undergo cholecystectomy. She was transfused 1 unit prbcs preop for anemia of 7.1 & had approx 100cc EBL. Her Hb remained stable & her LFTs & wbcs were all normal, but she had fevers due to CXR confirmed atelectasis & poor incentive spirometry use. After education & improved pulmonary toilet, she was afebrile x 24hrs & discharged on Augmentin. Input from the hospitalist re: HIV/AIDS was obtained & she will resume her out patient meds & f/u for drain removal with me & her PCP/HIV physician on an outpt basis. She was discharged in improved condition. Time Spent with Patient Time attestation: Total time managing care of this patient today ____ minutes. Discharge coordination time: Less than 30 minutes Quality: Safe Use of Opioids Does Pt have an Active Cancer Diagnosis on the Problem List?: No Quality: Stroke Does the patient have a stroke diagnosis?: No Physical Exam Vital Signs: Vital Signs: Last Vital Signs Temp 97.9 F 08/21/22 11:19 Pulse 68 08/21/22 11:19 Resp 18 08/21/22 11:19 BP 130/68 08/21/22 11:19 Pulse Ox 95 08/21/22 11:19 O2 Del Method Room Air 08/21/22 11:19 O2 Flow Rate 2 08/18/22 19:43 BMI result Body Mass Index 26.3 DS: Data Data Completed and Pending Pending studies at discharge: Pending at discharge 08/18/22 14:47 Surgical [PTH] Routine Labs on day of discharge: Laboratory Results - last 24 hr 08/18/22 08/20/22 08/21/22 10:42 15:54 06:36 WBC 4.8 RBC 3.71 L Hgb 8.4 L Hct 27.8 L MCV 74.9 L MCH 22.6 L MCHC 30.2 L RDW 24.3 H Plt Count 316 MPV 8.6 L Absolute Nucleated RBC 0.000 Nucleated RBC % (auto) 0.0 Sodium Potassium Chloride Carbon Dioxide Anion Gap BUN Creatinine Estim Creat Clear Calc Estimated GFR Random Glucose Calcium Total Bilirubin Direct Bilirubin AST ALT Alkaline Phosphatase Total Protein Albumin Urine Color Yellow Urine Appearance Clear Urine pH 7.0 Ur Specific [place] 1.010 Urine Protein Negative Urine Glucose (UA) Negative Urine Ketones Negative Urine Blood Negative Urine Nitrite Negative Ur Leukocyte Esterase Negative Total Lymphocytes 674 L % CD3 Cells 43 L Absolute CD3 Count 290 L % CD4 Cells 2 L Absolute CD4 Count <20 L CD4/CD8 Ratio 0.05 L % CD8 Cells 37 Absolute CD8 Count 249 08/21/22 08/21/22 06:36 06:36 WBC RBC Hgb Hct MCV MCH MCHC RDW Plt Count MPV Absolute Nucleated RBC Nucleated RBC % (auto) Sodium 140 Potassium 3.3 Chloride 108 Carbon Dioxide 22 Anion Gap 13 BUN 4 L Creatinine 0.63 Estim Creat Clear Calc 93.1 Estimated GFR > 60 Random Glucose 88 Calcium 8.8 Total Bilirubin 0.3 Direct Bilirubin 0.1 AST 16 ALT 9 Alkaline Phosphatase 56 Total Protein 6.9 Albumin 3.1 L Urine Color Urine Appearance Urine pH Ur Specific [place] Urine Protein Urine Glucose (UA) Urine Ketones Urine Blood Urine Nitrite Ur Leukocyte Esterase Total Lymphocytes % CD3 Cells Absolute CD3 Count % CD4 Cells Absolute CD4 Count CD4/CD8 Ratio % CD8 Cells Absolute CD8 Count Preliminary micro results at discharge 08/18/22 00:09 Blood Culture - Preliminary Blood - Venous No growth after 48 hours. 08/18/22 00:09 Blood Culture - Preliminary Blood - Venous No growth after 48 hours. Discharge Plan Discharge Anticipated Discharge Date/Time: 08/21/22 10:06 Patient Disposition: Home, Self-Care Discharge Diagnosis: s/p laparoscopic cholecystectomy, anemia, HIV Referrals: Vera Leong DO [Primary Care Provider] - 1 Week Carter Steel MD [Physician] - 1 Week Discharge Medications: New amoxicillin-pot clavulanate 875-125 mg tablet 1 tab PO BID Qty: 10 0RF oxycodone 5 mg tablet 5 mg PO Q4H PRN (Reason: pain) Qty: 14 0RF Rx Instructions: Partial Fill upon patient request. Continued Biktarvy 50-200-25 mg tablet 1 tab PO DAILY cyanocobalamin (vitamin B-12) [Vitamin B-12] 1,000 mcg Tablet 1,000 mcg PO DAILY Qty: 90 3RF sulfamethoxazole-trimethoprim 400-80 mg tablet 1 tab PO DAILY famotidine 20 mg tablet 1 tab PO DAILY ferrous sulfate 325 mg (65 mg iron) Tablet 325 mg PO BID Qty: 60 5RF Xulane 150-35 mcg/24 hr patch weekly 1 patch topical QWEEK Discharge Orders: Discharge Order (Routine); Ordered 08/21/22 Ordered By: Jorge Swanson Diet: Low Fat Activity on Discharge: No heavy lifting Stand Alone Forms: Patient Portal Discharge page Activity Restrictions/Additional Instructions: You had a laparoscopic cholecystectomy performed by Dr. Steel. It is normal to experience some neck or shoulder pain from the gas used to inflate your abdomen. It is also normal to have pain or discomfort in your abdomen/belly as well as at the trocar sites (small incisions). This discomfort will resolve over the next 1-3 days, however, if it gets progressively worse, if you should develop worsening pain, nausea, vomiting and cannot keep liquids down, chest pain, difficulty breathing or shortness of breath, fevers over 100F please report to the nearest emergency department. Unless otherwise directed by Dr. Steel, you should resume taking your regular medications. Measure output from your drain daily & bring the results to Dr. Steel's office at your follow-up appointment next week. Be sure to contact your primary care provider & HIV doctor and inform them that you had surgery and that you need to be seen in the next 2 weeks for follow-up care regarding your other health problems. As Dr. Steel reviewed, you must not lift more than 20 lb for the next 4 weeks. Strenuous activities can tear out your sutures and cause an incisional hernia that would require another operation. Activities to be avoided include: sports, running, bicycling, yoga, lifting more than 20 lb, digging, gardening, splitting/carrying wood, swimming, hiking uphill, and other activities. If you have questions regarding this specific activity, please check with Dr. Steel. If your incisions become red, swollen, tender or draining pus, please contact Dr. Steel or go to the nearest emergency department. Because of the drain, you must not shower or soak in a tub; sponge baths are ok. Remove your bandages on your incisions tomorrow. Do not soak in a tub or swimming pool until your incisions have completely sealed, usually 2 or more weeks. After the dressings are removed, you will notice paper tapes called butterflies/Steri-Strips. These tapes will fall off on their own in 1-2 weeks. You do not need to apply another bandage unless your clothing irritates your incisions. If you need to place another Band-Aid on your incisions, be sure to wait until the Steri strip is dry. You have been prescribed narcotic pain medicine that will cause constipation. Please purchase [id number] stool softener known as Colace/docusate, 100 mg. Take 2 tablets with breakfast and the morning and 2 tablets in the evening after dinner until your bowels are moving and urine or longer taking narcotics. Please note that if you are not taking narcotics, the general anesthesia for the procedure can still cause constipation. If you experience diarrhea, stop taking the stool softener medicine. You can take [id number] Tylenol/acetaminophen. You should also use ice packs to the operative site to help minimize pain and swelling for the first 3 days, or as needed afterwards. Unless there is a medical reason to avoid these medicines, you should take 2 [id number] Tylenol every 6 hours for the first 3 days to help with pain. Remember that the gallbladder helps to to digest fatty foods. If you eat fried foods; rich, creamy sauces; cheese; gravies or other such heavy, greasy foods, you will likely develop gas and bloating and diarrhea. To minimize this risk, eat a high protein, high-fiber, low-fat diet for the next few weeks. Care Plan Goals: Allow adequate healing & follow-up with your primary care provider Health Concerns: Allow adequate healing; follow-up with your PCP Plan of Treatment: Complete antibiotics; allow adequate healing; follow-up with PCP Assessment: acute cholecystitis, s/p lap luisito Patient Instructions: [facility] Drain Care (DC) Discharge Date/Time: 08/21/22 11:00
== END 2022-08-21 11:00 | disposition home or self-care (01) | DRG 263 ==
LOC: HO.ED 08-18 00:01 → HO.EDOVER 08-18 00:10 → HO.S3 08-18 02:11
PROVIDERS: Anesthesiology; Family Medicine; Registered Nurse Emergency; Student in an Organized Health Care Education/Training Program; Admitting Provider Surgery; Emergency Provider Student in an Organized Health Care Education/Training Program; PCP Family Medicine; Visit Provider Surgery
PROC: 0FT44ZZ Resection of Gallbladder, Percutaneous Endoscopic Approach (ICD-10-PCS; CPT 47562; principal; 2022-08-18 11:30)
DX: K81.0 Acute cholecystitis (principal); B20 Human immunodeficiency virus [HIV] disease; K82.A1 Gangrene of gallbladder in cholecystitis; N92.0 Excessive and frequent menstruation with regular cycle; J95.89 Other postprocedural complications and disorders of respiratory system, not elsewhere classified; J98.11 Atelectasis; D50.9 Iron deficiency anemia, unspecified; Z91.128 Patient's intentional underdosing of medication regimen for other reason; Z79.899 Other long term (current) drug therapy
CPT/HCPCS: 36415; 71045; 74177; 80048; 80053; 80076; 81001; 81003; 81025; 83605; 83690; 84702; 85025; 85027; 85610; 85730; 86359; 86360; 86850; 86900; 86901; 86923; 87040; 87070; 87205; 87536; 88304; 99285; J0690; J1885; J2405; J2543; J3010; P9016; Q9967

== ENCOUNTER → 2022-08-27 12:38 | Outpatient (BNVA) | payer MEDICAID, SELFPAY | PROVIDERS: PCP Family Medicine; Visit Provider Surgery ==

== ENCOUNTER 2022-09-20 09:14 | Outpatient (REF) | payer MEDICAID, SELFPAY ==
[2022-09-20 11:17] LABS: MANUAL DIFF FLAG NO
[2022-09-20 11:43] LABS: Appearance Urine Clear; Color Urine Yellow; Glucose Urine UA Negative (Negative); Leukocyte Esterase Urine Trace (Negative); Nitrite Urine Negative (Negative); PH 6.5 (5.0-9.0); Specific Gravity - Urine 1.025 (1.005-1.025); UMIC TRIGGER UA YES; Urine Blood Negative (Negative); Urine Ketones Negative (Negative); Urine Protein Trace mg/dL (Neg-Trace)
[2022-09-20 11:48] LABS: Bacteria Urine 4+ (None Seen); Hyaline Casts Urine 0-2 /LPF (0-2); RBC Urine 0-2 /HPF (0-2); WBC Urine 0-5 /HPF (0-5)
[2022-09-20 12:01] LABS: Basophils Percent Auto 0.4 % (0-2); Eosinophils Absolute Auto 0.2 X10*3/uL (0.0-0.4); Eosinophils Percent Auto 2.4 % (0-4); Hematocrit 30.6 % (37.0-47.0); Hemoglobin 9.2 g/dl (12.0-16.0); Imm Gran Abs Auto 0.02 X10*3/uL (0.00-0.03); Imm Gran Pct Auto 0.3 % (0.0-0.4); Lymphocytes Absolute Auto 1.4 X10*3/uL (1.2-4.9); Lymphocytes Percent Auto 18.9 % (20-40); Mean Corpuscular HGB Conc 30.1 g/dl (31.0-35.0); Mean Corpuscular Volume 79.9 fL (80.0-98.0); Mean Platelet Volume 9.7 fL (9.4-12.3); Monocytes Absolute Auto 0.2 X10*3/uL (0.1-1.2); Monocytes Percent Auto 2.8 % (2-11); Neutrophils Absolute Auto 5.6 x10*3/uL (2.0-8.3); Neutrophils Percent Auto 75.2 % (45-73); Platelet Count 334 X10*3/uL (160-400); Red Blood Count 3.83 X10*6/uL (4.20-5.50); White Blood Count 7.5 X10*3/uL (4.8-10.8)
[2022-09-20 12:25] LABS: Alanine Aminotransferase 10 U/L (0-31); Albumin Level 3.9 g/dL (3.5-5.0); Alkaline Phosphatase 66 U/L (39-117); Anion Gap 13 (12-20); Aspartate Amino Transferase 11 U/L (5-31); Bilirubin Total 0.2 mg/dL (0.0-1.0); Blood Urea Nitrogen 9 mg/dL (9-16); Calcium 9.3 mg/dL (8.4-10.2); Carbon Dioxide 22 mmol/L (22-29); Chloride 109 mmol/L (96-108); Estimated Glomerular Filt Rate > 60; Glucose Random 87 mg/dL (60-115); Potassium 3.2 mmol/L (3.3-5.1); Sodium 141 mmol/L (135-145); Total Protein 7.7 g/dL (6.5-8.0)
[2022-09-21 04:31] LABS: ~HepC Num1 0.14 S/CO (0.00-0.79); ~Hepatitis C Antibody Nonreactive (Nonreactive)
[2022-09-21 14:29] LABS: Absolute CD3 Count 616 cells/uL (840-3060); Absolute CD4 Count 61 cells/uL (490-1740); Absolute CD8 Count 512 cells/uL (180-1170); Absolute Lymphocytes 1109 cells/uL (850-3900); CD4 CD8 Ratio 0.12 (0.86-5.00); Percent CD3 Cells 56 % (57-85); Percent CD4 Cells 5 % (30-61); Percent CD8 Cells 46 % (12-42)
[2022-09-21 15:28] LABS: HIV RNA PCR Qn Copies 45 copies/mL (NOT DETECTED); HIV RNA PCR Qn Log Copies 1.65 (NOT DETECTED)
[2022-09-22 04:17] LABS: Syphilis Screen Nonreactive (Nonreactive)
[2022-09-22 18:43] LABS: TS Negative Control Passed; TS Panel A 0; TS Panel B 0; TS Positive Control Passed; TSpotTB Negative (Negative)
== END 2022-09-20 09:15 | disposition home or self-care (01) ==
LOC: HO.HHCL 09:14
PROVIDERS: Visit Provider Family Medicine
DX: Z11.1 Encounter for screening for respiratory tuberculosis (principal); B20 Human immunodeficiency virus [HIV] disease
CPT/HCPCS: 36415; 80053; 81001; 85025; 86359; 86360; 86481; 86780; 86803; 87536

== ENCOUNTER 2022-10-15 13:47 | Outpatient (REF) | payer MEDICAID, SELFPAY ==
[2022-10-15 18:02] LABS: MANUAL DIFF FLAG NO
[2022-10-15 18:12] LABS: Basophils Absolute Auto 0.1 X10*3/uL (0.0-0.2); Basophils Percent Auto 1.1 % (0-2); Eosinophils Absolute Auto 0.2 X10*3/uL (0.0-0.4); Eosinophils Percent Auto 3.4 % (0-4); Hematocrit 30.8 % (37.0-47.0); Hemoglobin 9.3 g/dl (12.0-16.0); Imm Gran Abs Auto 0.02 X10*3/uL (0.00-0.03); Imm Gran Pct Auto 0.3 % (0.0-0.4); Lymphocytes Absolute Auto 1.1 X10*3/uL (1.2-4.9); Mean Corpuscular HGB Conc 30.2 g/dl (31.0-35.0); Mean Corpuscular Volume 79.6 fL (80.0-98.0); Monocytes Absolute Auto 0.4 X10*3/uL (0.1-1.2); Monocytes Percent Auto 6.2 % (2-11); Neutrophils Absolute Auto 4.4 x10*3/uL (2.0-8.3); Platelet Count 403 X10*3/uL (160-400); Red Blood Count 3.87 X10*6/uL (4.20-5.50); White Blood Count 6.2 X10*3/uL (4.8-10.8)
[2022-10-15 19:02] LABS: Alanine Aminotransferase 15 U/L (0-31); Albumin Level 4.1 g/dL (3.5-5.0); Alkaline Phosphatase 69 U/L (39-117); Anion Gap 12 (12-20); Aspartate Amino Transferase 13 U/L (5-31); Bilirubin Total 0.2 mg/dL (0.0-1.0); Blood Urea Nitrogen 7 mg/dL (9-16); Calcium 9.5 mg/dL (8.4-10.2); Carbon Dioxide 25 mmol/L (22-29); Chloride 106 mmol/L (96-108); Estimated Glomerular Filt Rate > 60; Glucose Random 79 mg/dL (60-115); Potassium 3.1 mmol/L (3.3-5.1); Sodium 140 mmol/L (135-145); Total Protein 8.2 g/dL (6.5-8.0)
[2022-10-19 14:04] LABS: HIV RNA PCR Qn Copies 1640 copies/mL (NOT DETECTED); HIV RNA PCR Qn Log Copies 3.21 (NOT DETECTED)
== END 2022-10-15 13:48 | disposition home or self-care (01) ==
LOC: HO.HHCL 13:47
PROVIDERS: Visit Provider Family Medicine
DX: B20 Human immunodeficiency virus [HIV] disease (principal)
CPT/HCPCS: 36415; 80053; 85025; 87536

== ENCOUNTER 2022-10-27 11:50 | Outpatient (REF) | payer MEDICAID, SELFPAY ==
[2022-10-30 16:49] LABS: HIV RNA PCR Qn Copies <20 Copies/mL; HIV RNA PCR Qn Log Copies <1.30 Log cps/mL
== END 2022-10-27 11:51 | disposition home or self-care (01) ==
LOC: HO.HHCL 11:50
PROVIDERS: Visit Provider Family Medicine
DX: B20 Human immunodeficiency virus [HIV] disease (principal)
CPT/HCPCS: 36415; 87536; 87900; 87906

== ENCOUNTER 2022-10-29 12:55 | Outpatient (REF) | payer MEDICAID, SELFPAY ==
--- NOTE | ~2022-10-29 | US_ITS ---
EXAMINATION: US PELVIS COMPLETE CLINICAL INFORMATION: Abnormal uterine bleeding COMPARISON: Pelvic ultrasound 07/17/2021 TECHNIQUE: Transabdominal imaging was performed. FINDINGS: The uterus is mildly enlarged measuring 12.3 x 4.7 x 5.9 cm without edward discrete mass. A regular homogeneous endometrium is identified measuring 0.9 cm. Both ovaries are of normal size and echogenicity. The right measures 1.9 x 1.0 x 2.3 cm for a volume of 2.3 mL. The left measures 2.6 x 1.1 x 2.2 cm for a volume of free 0.3 mL. There is no pelvic free fluid. US/US pelvic limited IMPRESSION: Uterus is mildly enlarged however without edward discrete mass, if any clinical concern for underlying adenomyosis a transvaginal ultrasound or MR could be obtained.
== END 2022-10-29 12:56 | disposition home or self-care (01) ==
LOC: HO.HMGCX 12:55
PROVIDERS: PCP Family Medicine; Visit Provider Family Medicine
DX: N93.9 Abnormal uterine and vaginal bleeding, unspecified (principal)
CPT/HCPCS: 76857

== ENCOUNTER 2022-11-16 10:57 | Outpatient (REF) | payer MEDICAID, SELFPAY | END 2022-11-16 10:58 | disposition home or self-care (01) | LOC: HO.MAMMO 10:57 | PROVIDERS: PCP Family Medicine; Visit Provider Family Medicine | DX: Z12.31 Encounter for screening mammogram for malignant neoplasm of breast (principal) | CPT/HCPCS: 77063; 77067 ==

== ENCOUNTER → 2022-11-16 11:30 | Outpatient (BNV) | payer MEDICAID, SELFPAY | PROVIDERS: PCP Family Medicine; Visit Provider Radiology Diagnostic Radiology | DX: Z12.31 Encounter for screening mammogram for malignant neoplasm of breast (principal) | CPT/HCPCS: 77063; 77067 ==

== ENCOUNTER 2022-11-22 12:21 | Outpatient (REF) | payer MEDICAID, SELFPAY ==
[2022-11-22 14:39] LABS: Alanine Aminotransferase 9 U/L (0-31); Albumin Level 4.2 g/dL (3.5-5.0); Alkaline Phosphatase 69 U/L (39-117); Anion Gap 15 (12-20); Aspartate Amino Transferase 13 U/L (5-31); Bilirubin Total 0.2 mg/dL (0.0-1.0); Blood Urea Nitrogen 8 mg/dL (9-16); Calcium 9.9 mg/dL (8.4-10.2); Carbon Dioxide 23 mmol/L (22-29); Chloride 106 mmol/L (96-108); Estimated Glomerular Filt Rate > 60; Glucose Random 80 mg/dL (60-115); Potassium 3.9 mmol/L (3.3-5.1); Sodium 140 mmol/L (135-145); Total Protein 8.5 g/dL (6.5-8.0)
[2022-11-23 07:23] LABS: Absolute CD3 Count 995 cells/uL (840-3060); Absolute CD4 Count 140 cells/uL (490-1740); Absolute CD8 Count 783 cells/uL (180-1170); Absolute Lymphocytes 2273 cells/uL (850-3900); CD4 CD8 Ratio 0.18 (0.86-5.00); Percent CD3 Cells 44 % (57-85); Percent CD4 Cells 6 % (30-61); Percent CD8 Cells 34 % (12-42)
== END 2022-11-22 12:22 | disposition home or self-care (01) ==
LOC: HO.HHCL 12:21
PROVIDERS: Visit Provider Student in an Organized Health Care Education/Training Program
DX: B20 Human immunodeficiency virus [HIV] disease (principal)
CPT/HCPCS: 36415; 80053; 86359; 86360

== ENCOUNTER 2023-11-18 10:37 | Outpatient (REF) | payer MEDICAID, SELFPAY ==
--- NOTE | ~2023-11-18 | MM_ITS ---
EXAMINATION: MM SCREENING DIGITAL BREAST TOMOSYNTHESIS, BILATERAL CLINICAL INFORMATION: Screening. Asymptomatic. COMPARISON: Mammography: Comparison is made with available priors TECHNIQUE: Digital breast mammography with tomosynthesis is performed in both the craniocaudal and mediolateral oblique views along with computer-aided detection (CAD). FINDINGS: There are scattered areas of fibroglandular density (ACR BI-RADS breast composition Category b). There are no significant masses, abnormal calcifications, or other abnormalities. MM/MM tomosynthesis screening BI IMPRESSION: No mammographic evidence of malignancy. ASSESSMENT: BI-RADS BI-RADS 1 - Negative RECOMMENDATION: Routine annual mammography screening. 1 year F/U This examination should not preclude the clinical evaluation of a suspicious palpable abnormality. This patient's information was entered into a reminder system with a target due date for their next mammogram. Electronically signed by: Nabila Almaguer DO 11/30/2023 09:24 AM EDT
== END 2023-11-18 10:38 | disposition home or self-care (01) ==
LOC: HO.MAMMO 10:37
PROVIDERS: PCP Family Medicine; Visit Provider Family Medicine
DX: Z12.31 Encounter for screening mammogram for malignant neoplasm of breast (principal)
CPT/HCPCS: 77063; 77067

== ENCOUNTER → 2023-11-18 11:00 | Outpatient (BNV) | payer MEDICAID, SELFPAY | PROVIDERS: PCP Family Medicine; Visit Provider Internal Medicine | DX: Z12.31 Encounter for screening mammogram for malignant neoplasm of breast (principal) | CPT/HCPCS: 77063; 77067 ==

== ENCOUNTER 2024-05-05 09:46 | Emergency (ER) | payer MEDICAID, SELFPAY ==
--- NOTE | ~2024-05-05 | XR_ITS ---
CLINICAL HISTORY: cough pain 2 view chest x-ray. Comparison: CR/SR - XR CHEST 1V - 08/20/22 14:43 EDT Findings: Normal lung volumes. Lungs are clear. No pneumothorax or pleural effusion. Heart size normal. No passive venous congestion. No midline shift or tracheal deviation. No acute fracture. Surgical clips right upper quadrant Impression: 1. No acute cardiopulmonary disease. This document has been electronically signed by: Minh Hernandez MD on 05/05/2024 10:48:42
--- NOTE | ~2024-05-05 | CT_ITS ---
CLINICAL HISTORY: chest pain, elevated D-dimer. Exam: CT angiogram of the chest with intravenous contrast. Comparison: Chest x-ray from earlier today. Findings: There is appropriate contrast opacification of the main, lobar, and segmental pulmonary arteries. No filling defects identified to suggest pulmonary embolism. Thoracic aorta is nonaneurysmal. Overall heart size is within normal limits. No pathologically enlarged mediastinal, hilar, or axillary lymph nodes. Concentric wall thickening of the mid to distal esophagus without discrete mass lesion or significant esophageal dilation. Scattered areas of hazy ground-glass opacity within the lungs without dense area of consolidation. No pleural effusion or pneumothorax. No free fluid or free air is seen within the upper abdomen. Gallbladder is surgically absent. No acute bony lesions. Impression: 1. No pulmonary embolism. 2. Areas of hazy density within the lungs are likely related to atelectasis. Mild small airways disease could give a similar appearance. 3. Concentric wall thickening of the mid to distal esophagus most characteristic of esophagitis. This document has been electronically signed by: Sunny Hurt MD on 05/05/2024 14:56:20
[2024-05-05 10:03] VITALS: BP 137/81; PULSE 97; RESP 18; TEMP 36.9; O2SAT 99; BMI 27.3
[2024-05-05 12:05] VITALS: BP 134/79; PULSE 89; RESP 15; TEMP 36.8; O2SAT 99
--- NOTE | 2024-05-05 12:39 | ED_ITS ---
HPI - General Adult General Chief complaint: Upper Respiratory Symptoms Stated complaint: pain r side upon cough and deep breath Time Seen by Provider: 05/05/24 12:12 Source: patient and medical interpreter Mode of arrival: ambulatory Limitations: no limitations History of Present Illness ED Provider: DR. Haley HPI narrative: 43-year-old female with past medical history significant for HIV/ AIDS on HAART the cholecystectomy presented with 3 days of cough and right-sided chest pain with coughing and taking a deep breath. No recent travel, no hemoptysis, no lower extremity swelling or tenderness, no history of DVT or PE. No fever, no chills, no exposure to sick contacts, patient stated she had flu- like symptoms last week that is improving now. Related Data Home Medications ?Medication ?Instructions ?Recorded ?Confirmed bictegravir 50 mg-emtricitabine 1 tab PO DAILY 02/23/21 08/27/22 200 mg-tenofovir alafenam 25 mg tablet (Biktarvy) famotidine 1 tab PO DAILY 10/13/21 08/18/22 sulfamethoxazole 400 1 tab PO DAILY 10/13/21 08/27/22 mg-trimethoprim 80 mg tablet norelgestromin 150 mcg-e.estradiol 1 patch topical QWEEK 08/18/22 08/27/22 35 mcg/24 hr weekly transderm patch (Xulane) Previous Rx's ?Medication ?Instructions ?Recorded ferrous sulfate 325 mg (65 mg 325 mg PO BID #60 tabs 10/13/21 iron) tablet amoxicillin 875 mg-potassium 1 tab PO BID #10 tabs 08/20/22 clavulanate 125 mg tablet cyanocobalamin (vitamin B-12) 1,000 mcg PO DAILY #90 tabs 09/03/22 1,000 mcg tablet (Vitamin B-12) doxycycline hyclate 100 mg tablet 100 mg PO BID #14 tabs 05/05/24 guaifenesin 200 mg/5 mL oral liquid 400 mg (10 mL) PO Q6H PRN cough 05/05/24 #118 mL prednisone 20 mg tablet 20 mg PO BID #10 tabs 05/05/24 Allergies Allergy/AdvReac Type Severity Reaction Status Date / Time No Known Allergies Allergy Verified 05/05/24 10:04 [No Known Allergies*] Review of Systems 2 Review of Systems: All other systems are reviewed and are negative Constitutional: Reports as per HPI and Reports no additional constitutional complaints Eyes: Reports as per HPI and Reports no additional eye complaints Reports system reviewed and no additional complaints, except as documented Cardiovascular: Reports as per HPI and Reports no additional cardiovascular complaints Respiratory: Reports as per HPI and Reports no additional respiratory complaints Gastrointestinal: Reports as per HPI and Reports no additional gastrointestinal complaints Genitourinary: Reports no additional female genitourinary complaints Musculoskeletal: Reports no additional musculoskeletal complaints Skin/Breast: Reports system reviewed and no additional complaints, except as docu Psychiatric: Reports no additional psychiatric complaints Endocrine: Reports no additional endocrine complaints Hematologic/Lymphatic: Reports no additional hematologic/lymphatic complaints Allergic/Immunologic: Reports no additional allergic/immunologic complaints Reports system reviewed and no additional complaints, except as documented and Reports Abnormal speech present [facility] Past Medical History Medical History Fever ABILIO III (cervical intraepithelial neoplasia grade III) with severe dysplasia Centers for Disease Control and Prevention category C3 HIV infection Anemia AIDS (acquired immune deficiency syndrome) Surgical History Hx laparoscopic cholecystectomy (08/18/22) Hx of section Social History Social History Household Members: Family Housing: Apartment Do you presently have visiting nurse or other home services: No Alcohol intake: never Patient Tobacco Use Status: Never used Tobacco Tobacco use type: Cigarette e-Cigarette/Vaping Use: Never Used Second Hand Smoke Exposure: No Advance Directives: No Advance Directives Information Provided: No service: No Current occupational status: unemployed and disabled Physical Exam ED Vital Signs: Vital Signs - 24 hr 05/05/24 10:03 05/05/24 12:05 Temperature 98.4 F 98.3 F Pulse Rate 97 89 Respiratory Rate 18 15 Blood Pressure 137/81 134/79 Pulse Oximetry 99 99 Oxygen Delivery Method Room Air Room Air BMI result Body Mass Index 27.3 Vital signs have been reviewed and appear to be correct. Blood pressure elevated. Heart rate normal. Respiratory rate normal. Temperature normal. Oxygen saturation normal. Appearance: Alert. Oriented X3. No acute distress. Head: Normal external exam. Normocephalic. Atraumatic. No Quesada signs noted. No raccoon eyes noted Eyes: PERRLA. EOMI. Conjunctiva and sclera normal. Eyelids normal. ENT: TM's Normal. Pharynx normal. Uvula midline. Moist mucous membranes. No trismus noted. No drooling noted. No muffled voice noted. Neck: Normal inspection. Neck supple. FROM. No adenopathy. Thyroid Normal. No meningeal signs. No neck mass noted. CVS: Normal heart rate and rhythm. Heart sound normal. No murmurs noted. Pulses normal throughout. Respiratory: No respiratory distress. Painless inspiration. Breath sounds normal. No wheezes/rales/rhonchi noted. Chest nontender. No accessory muscle usage noted or decreased air movement noted. Abdomen: Soft and nontender. Bowel sounds normal in all 4 quadrants. No distention noted. No organomegaly noted. No visible injury noted. Back: No CVA tenderness. Full range of motion noted. Skin: Skin warm and dry. Normal skin color. Normal skin turgor. No rashes/lesions/lacerations noted. Extremities: No lower extremity edema. Extremities exhibit normal range of motion. Extremities nontender. Neuro: Oriented X 3. Cranial nerve exam: II-XII are grossly intact No motor deficit. No sensory deficit. Reflexes normal. Course Reevaluation(s) Reevaluation #1: 43-year-old female history of HIV recent upper respiratory sickness presented with coughing, no pneumonia on the chest x-ray. No pulmonary embolism on CT or any other suspicion for atypical pneumonia. Pain is pleuritic, negative workup, will discharge the patient on doxycycline/prednisone/ guaifen coughing syrup. Time: 15:09 Medications Administered Discontinued Medications Generic Name Dose Route Start Last Admin Trade Name Freq PRN Reason Stop Dose Admin Guaifenesin/Codeine Phosphate 10 ml 05/05/24 12:39 05/05/24 13:04 Guaifen/Codeine Sf 200/20/10ml 10 Ml Liquid PO 05/05/24 12:40 10 ml ONCE ONE Administration Ibuprofen 400 mg 05/05/24 12:38 05/05/24 13:04 Ibuprofen 400 Mg Tablet PO 05/05/24 12:39 400 mg ONCE ONE Administration Iohexol 100 ml 05/05/24 14:21 05/05/24 14:22 Iohexol 350 Mg/Ml 100 Ml Infus..Btl IV 05/05/24 14:22 65 ml ONCE ONE Administration Medical Decision Making Differential Diagnosis Differential Diagnoses: The differential diagnosis associated with the presentation includes ( pneumonia, pneumothorax, pleural effusion, CHF, pulmonary embolism ACS, electrolyte derangement, severe anemia, viralupper respiratory infection) Admission/Observation Consideration of admission/observation: Escalation of care including admission/observation considered Lab Data MDM Lab Attestation statement: I reviewed the patient's lab results. 05/05/24 12:55 05/05/24 12:55 Labs: Lab Results 05/05/24 05/05/24 Range/Units 12:54 12:55 WBC 4.4 L (4.8-10.8) X10*3/uL RBC 3.99 L (4.20-5.50) X10*6/uL Hgb 10.1 L (12.0-16.0) g/dl Hct 30.5 L (37.0-47.0) % MCV 76.4 L (80.0-98.0) fL MCH 25.3 L (27.0-33.0) pg MCHC 33.1 (31.0-35.0) g/dl RDW 23.5 H (11.0-16.0) % Plt Count 219 D (160-400) X10*3/uL MPV 9.4 (9.4-12.3) fL Immature Gran % (Auto) 0.2 (0.0-0.4) % Neut % (Auto) 71.0 (45-73) % Lymph % (Auto) 23.1 (20-40) % Morton % (Auto) 5.0 (2-11) % Eos % (Auto) 0.5 (0-4) % Baso % (Auto) 0.2 (0-2) % Lymph # (Auto) 1.0 L (1.2-4.9) X10*3/uL Morton # (Auto) 0.2 (0.1-1.2) X10*3/uL Eos # (Auto) 0.0 (0.0-0.4) X10*3/uL Baso # (Auto) 0.0 (0.0-0.2) X10*3/uL Abs Immat Gran (auto) 0.01 (0.00-0.03) X10*3/uL Absolute Neuts (auto) 3.1 (2.0-8.3) x10*3/uL Absolute Nucleated RBC 0.000 (0.0-0.012) X10*3/uL Nucleated RBC % (auto) 0.0 (0.0-0.2) /100WBC D-Dimer High Sensitivty 604 NG/ML Sodium 140 (135-145) mmol/L Potassium 4.4 (3.3-5.1) mmol/L Chloride 111 H (96-108) mmol/L Carbon Dioxide 22 (22-29) mmol/L Anion Gap 11 L (12-20) BUN 9 (9-16) mg/dL Creatinine 0.64 (0.5-1.4) mg/dL Estim Creat Clear Calc 92.3 Estimated GFR > 60 Random Glucose 81 (60-115) mg/dL Calcium 9.2 D (8.4-10.2) mg/dL Troponin I High Sens < 2.7 (<3.5-17.0) ng/L Influenza Type A (PCR) NEGATIVE (Negative) Influenza Type B (PCR) NEGATIVE (Negative) RSV RNA Qual (PCR) NEGATIVE (Negative) SARS-CoV-2 RNA (RT-PCR) NEGATIVE (Negative) Independent Interpretation I performed an independent interpretation of an: Plain X-Ray ( chest: No acute cardiopulmonary disease.) Radiology Impression Discussion of test interpretation with radiology: I have reviewed the radiologist's reading. Discharge Plan Discharge Clinical Impression: Pleurisy Patient Disposition: Home, Self-Care Instructions: Pleurisy (ED) Prescriptions: New doxycycline hyclate 100 mg tablet 100 mg PO BID Qty: 14 0RF prednisone 20 mg tablet 20 mg PO BID Qty: 10 0RF guaifenesin 200 mg/5 mL liquid 400 mg PO Q6H PRN (Reason: cough) Qty: 118 0RF No Action Biktarvy 50-200-25 mg tablet 1 tab PO DAILY sulfamethoxazole-trimethoprim 400-80 mg tablet 1 tab PO DAILY famotidine 20 mg tablet 1 tab PO DAILY ferrous sulfate 325 mg (65 mg iron) Tablet 325 mg PO BID Qty: 60 5RF cyanocobalamin (vitamin B-12) [Vitamin B-12] 1,000 mcg Tablet 1,000 mcg PO DAILY Qty: 90 3RF Xulane 150-35 mcg/24 hr patch weekly 1 patch topical QWEEK amoxicillin-pot clavulanate 875-125 mg tablet 1 tab PO BID Qty: 10 0RF Referrals: Milana Quezada MD [Primary Care Provider] - Print Language: [place]
--- NOTE | 2024-05-05 12:41 | ECG_ITS ---
Test Reason : CHEST PAIN Blood Pressure : */* mmHG Vent. Rate : 83 BPM Atrial Rate : 83 BPM P-R Int : 166 ms QRS Dur : 88 ms QT Int : 372 ms P-R-T Axes : 29 41 12 degrees QTcB Int : 437 ms Normal sinus rhythm Normal ECG When compared with ECG of 10-Jul-2014 17:59, Vent. rate has decreased by 42 bpm Referred By: Bradley Haley Electronically Signed By: URIEL CHAVEZ
[2024-05-05 12:59] LABS: MANUAL DIFF FLAG NO
[2024-05-05] MEDS: guaiFEN/Codeine SF 200/20/10ML 10 ML LIQUID PO (13:04)
[2024-05-05] MEDS: Ibuprofen 400 MG TABLET PO (13:04)
[2024-05-05 13:12] LABS: D Dimer High Sensitivity 604 NG/ML
[2024-05-05 13:16] LABS: Anion Gap 11 (12-20); Blood Urea Nitrogen 9 mg/dL (9-16); Calcium 9.2 mg/dL (8.4-10.2); Carbon Dioxide 22 mmol/L (22-29); Chloride 111 mmol/L (96-108); Creatinine Clr Calc Pharmacy 92.3; Estimated Glomerular Filt Rate > 60; Glucose Random 81 mg/dL (60-115); Potassium 4.4 mmol/L (3.3-5.1); Sodium 140 mmol/L (135-145)
[2024-05-05 13:20] LABS: Basophils Percent Auto 0.2 % (0-2); Eosinophils Percent Auto 0.5 % (0-4); Hematocrit 30.5 % (37.0-47.0); Hemoglobin 10.1 g/dl (12.0-16.0); Imm Gran Abs Auto 0.01 X10*3/uL (0.00-0.03); Imm Gran Pct Auto 0.2 % (0.0-0.4); Lymphocytes Percent Auto 23.1 % (20-40); Mean Corpuscular HGB Conc 33.1 g/dl (31.0-35.0); Mean Corpuscular Hemoglobin 25.3 pg (27.0-33.0); Mean Corpuscular Volume 76.4 fL (80.0-98.0); Mean Platelet Volume 9.4 fL (9.4-12.3); Monocytes Absolute Auto 0.2 X10*3/uL (0.1-1.2); Neutrophils Absolute Auto 3.1 x10*3/uL (2.0-8.3); Platelet Count 219 X10*3/uL (160-400); Red Blood Count 3.99 X10*6/uL (4.20-5.50); Red Cell Distribution Width 23.5 % (11.0-16.0); White Blood Count 4.4 X10*3/uL (4.8-10.8)
[2024-05-05 13:25] LABS: Troponin-I High Sensitivity < 2.7 ng/L (<3.5-17.0)
[2024-05-05 13:38] LABS: Influenza A PCR NEGATIVE (Negative); Influenza B PCR NEGATIVE (Negative); Resp Syncy Virus RNA Qual PCR NEGATIVE (Negative); SARS COV2 PCR INHOUSE NEGATIVE (Negative)
[2024-05-05] MEDS: iohexoL 350 MG/ML 100 ML INFUS..BTL IV (14:22)
[2024-05-05 15:11] VITALS: BP 113/73; PULSE 93; RESP 18; TEMP 36.8; O2SAT 95
== END 2024-05-05 15:15 | disposition home or self-care (01) ==
PROVIDERS: Emergency Provider Emergency Medicine; PCP Family Medicine
DX: R09.1 Pleurisy (principal); R05.9 Cough, unspecified; Z03.818 Encounter for observation for suspected exposure to other biological agents ruled out; B20 Human immunodeficiency virus [HIV] disease; D64.9 Anemia, unspecified; Z79.899 Other long term (current) drug therapy
CPT/HCPCS: 0241U; 36415; 71046; 71275; 80048; 84484; 85025; 85379; 93005; 99284; Q9967

== ENCOUNTER → 2024-05-05 10:06 | Outpatient (BNV) | payer MEDICAID, SELFPAY | PROVIDERS: PCP Family Medicine; Visit Provider Radiology Diagnostic Radiology | DX: R91.8 Other nonspecific abnormal finding of lung field (principal); R07.9 Chest pain, unspecified; R05.9 Cough, unspecified | CPT/HCPCS: 71046; 71275 ==

== ENCOUNTER → 2024-05-05 12:41 | Outpatient (BNV) | payer MEDICAID, SELFPAY | PROVIDERS: Emergency Provider Emergency Medicine; PCP Family Medicine; Visit Provider Internal Medicine | DX: R07.9 Chest pain, unspecified (principal) | CPT/HCPCS: 93010 ==

== ENCOUNTER 2025-01-15 10:50 | Outpatient (REF) | payer MEDICAID, SELFPAY ==
[2025-01-15 13:42] LABS: Hematocrit 28.5 % (37.0-47.0); Hemoglobin 9.0 g/dl (12.0-16.0); Imm Gran Abs Auto 0.00 X10*3/uL (0.00-0.03); Imm Gran Pct Auto 0.0 % (0.0-0.4); Lymphocytes Absolute Auto 0.4 X10*3/uL (1.2-4.9); MANUAL DIFF FLAG SCAN; Mean Corpuscular HGB Conc 31.6 g/dl (31.0-35.0); Mean Corpuscular Hemoglobin 25.0 pg (27.0-33.0); Mean Corpuscular Volume 79.2 fL (80.0-98.0); NRBC Abs Auto 0.000 X10*3/uL (0.0-0.012); NRBC Pct Auto 0.0 /100WBC (0.0-0.2); Red Blood Count 3.60 X10*6/uL (4.20-5.50); SCAN SMEAR FLAG 1
[2025-01-15 13:51] LABS: White Blood Count 2.1 X10*3/uL (4.8-10.8)
[2025-01-15 14:15] LABS: Cholesterol 136 mg/dL (<200); HDL Cholesterol 41 mg/dL (>40); Triglycerides 151 mg/dL (<150)
[2025-01-15 14:16] LABS: Alanine Aminotransferase 25 U/L (0-31); Albumin Level 4.8 g/dL (3.5-5.0); Alkaline Phosphatase 100 U/L (39-117); Anion Gap 9 (12-20); Aspartate Amino Transferase 37 U/L (5-31); Blood Urea Nitrogen 17 mg/dL (9-16); Calcium 9.6 mg/dL (8.4-10.2); Carbon Dioxide 28 mmol/L (22-29); Chloride 109 mmol/L (96-108); Estimated Glomerular Filt Rate > 60; Lipase 18 U/L (8-78); Potassium 3.9 mmol/L (3.3-5.1); Sodium 142 mmol/L (135-145); Total Protein 8.5 g/dL (6.5-8.0)
[2025-01-15 14:17] LABS: Platelet Count 145 X10*3/uL (160-400)
[2025-01-15 15:46] LABS: Reflex LDLD? No
[2025-01-16 05:09] LABS: Syphilis Screen Nonreactive (Nonreactive)
[2025-01-17 06:03] LABS: HIV RNA PCR Qn Copies 376000 copies/mL (NOT DETECTED); HIV RNA PCR Qn Log Copies 5.58 (NOT DETECTED)
[2025-01-18 01:24] LABS: TS Negative Control Passed; TS Panel A 0; TS Panel B 0; TS Positive Control Passed; TSpotTB Negative (Negative)
[2025-01-21 11:09] LABS: Absolute CD3 Count 116 cells/uL (840-3060); Absolute CD8 Count 95 cells/uL (180-1170); Percent CD3 Cells 41 % (57-85); Percent CD8 Cells 33 % (12-42)
== END 2025-01-15 10:51 | disposition home or self-care (01) ==
LOC: HO.HHCL 10:50
PROVIDERS: Internal Medicine; PCP Family Medicine; Visit Provider Internal Medicine
DX: Z21 Asymptomatic human immunodeficiency virus [HIV] infection status (principal); Z11.1 Encounter for screening for respiratory tuberculosis; Z11.3 Encounter for screening for infections with a predominantly sexual mode of transmission; R10.11 Right upper quadrant pain
CPT/HCPCS: 36415; 80053; 80061; 83690; 85025; 86359; 86360; 86481; 86780; 87536

== ENCOUNTER 2025-01-23 11:50 | Outpatient (REF) | payer MEDICAID, SELFPAY | END 2025-01-23 11:51 | disposition home or self-care (01) | LOC: HO.LAB 11:50 | PROVIDERS: PCP Family Medicine; Visit Provider Student in an Organized Health Care Education/Training Program | DX: Z01.84 Encounter for antibody response examination (principal); B20 Human immunodeficiency virus [HIV] disease | CPT/HCPCS: 36415; 86403; 86644; 86645; 86777; 86778; 87900; 87901; 87906 ==